=== PATIENT | female | born 1980 | race Caucasian/White ===

== ENCOUNTER → 2017-09-18 | Outpatient (CLI) | payer OTHER, SELFPAY ==
[2017-09-18 12:35] LABS: Absolute Lymphocyte Count 2.57 X10^3/ul (0.83-4.51); Absolute Neutrophil Count 6.8 X10^3/uL (2.0-7.7); Basophil# 0.05 X10^3/uL; Basophil% 0.5 % (0-1); Eosinophil# 0.21 X10^3/uL; Hematocrit 44.2 % (37-47); Hemoglobin 14.9 g/dl (12.0-15.0); Lymphocyte # 2.57 X10^3/ul (4.0); Mean Corp Hgb Conc 33.7 g/gl (32-36); Mean Corpuscular Hgb 32.7 pg (27.0-32.0); Mean Corpuscular Volume 96.9 fL (81-99); Monocyte# 1.05 X10^3/uL; Monocyte% 9.8 % (0-10); Neutrophil % 63.6 % (47-70); Platelet Count 433 K/mm3 (150-450); RBC Distribution Width CV 13.4 % (11.6-14.6); RBC Distribution Width SD 47.6 fl (35.1-43.9); Red Blood Count 4.56 M/mm3 (4.2-5.4); White Blood Count 10.7 K/mm3 (4.4-11.0)
[2017-09-18 12:37] LABS: POSITIVE COUNT NO; POSITIVE DIFFERENTIAL NO; POSITIVE MORPHOLOGY NO
[2017-09-18 13:01] LABS: Erythrocyte Sedimentation Rate 27 mm/hr (0-20)
[2017-09-18 13:07] LABS: ALB/GLOB Ratio 0.9 RATIO (0.9-2.4); AST(SGOT) 49 U/L (15-37); Alanine Aminotransfer ALT/SGPT 76 U/L (13-56); Albumin, Serum 3.6 g/dL (3.2-5.0); Alkaline Phosphatase 87 U/L (45-117); Anion Gap 11 (5-15); BUN 9 mg/dL (7-18); BUN/Creat Ratio 10.5 RATIO (10-20); Calcium,Total 8.6 mg/dL (8.5-10.1); Chloride 105 mmol/L (98-107); Creatinine, Serum 0.86 mg/dL (0.55-1.02); EST Glomerular Filtration Rate 79 mL/min (>60); Est Glom Filt Rate - Afr Amer 95 mL/min (>60); Globulin 4.1 g/dL (2.2-4.2); Glucose 80 mg/dL (74-106); Potassium 3.7 mmol/L (3.5-5.1); Protein, Total 7.7 g/dL (6.4-8.2); Sodium Level 137 mmol/L (136-145); T4 Free Direct 1.12 ng/dL (0.76-1.46); Thyroid Stim Hormone (TSH) 1.34 uIU/mL (0.358-3.74)
[2017-09-19 17:05] LABS: Thyroid Peroxidase AB 15 IU/mL (0-34)
[2017-09-23 03:06] LABS: Aspergillus fumigatus <0.10 kU/L (Class 0); Bahia Grass 0.12 kU/L (Class 0/I); Beef <0.10 kU/L (Class 0); Bermuda Grass 0.13 kU/L (Class 0/I); Cat Hair/Dander, Standard <0.10 kU/L (Class 0); Cedar, Mountain 0.12 kU/L (Class 0/I); Cladosporium herbarum <0.10 kU/L (Class 0); Cockroach, American 0.55 kU/L (Class I); Corn <0.10 kU/L (Class 0); D farinae Mite <0.10 kU/L (Class 0); D pteronyssinus <0.10 kU/L (Class 0); Dog Epithelia <0.10 kU/L (Class 0); Egg, Whole <0.10 kU/L (Class 0); Elm, American White 0.12 kU/L (Class 0/I); Hazelnut Tree <0.10 kU/L (Class 0); Hickory, White <0.10 kU/L (Class 0); Johnson Grass 0.13 kU/L (Class 0/I); Maple/Box Elder 0.11 kU/L (Class 0/I); Milk (Cow) <0.10 kU/L (Class 0); Mucor racemosus <0.10 kU/L (Class 0); Mugwort <0.10 kU/L (Class 0); Mulberry, White <0.10 kU/L (Class 0); Nettle 0.14 kU/L (Class 0/I); Oak, White 0.13 kU/L (Class 0/I); Peanut <0.10 kU/L (Class 0); Penicillium chrysogen <0.10 kU/L (Class 0); Pigweed, Rough 0.12 kU/L (Class 0/I); Plantain, English 0.13 kU/L (Class 0/I); Pork <0.10 kU/L (Class 0); Ragweed, Short/Common 0.28 kU/L (Class 0/I); Sheep Sorrel(Dock) 0.11 kU/L (Class 0/I); Soybean <0.10 kU/L (Class 0); Stemphylium herbarum 0.16 kU/L (Class 0/I); Sweet Gum <0.10 kU/L (Class 0); Sycamore, American <0.10 kU/L (Class 0); Wheat 0.11 kU/L (Class 0/I)
[2017-09-23 11:31] LABS: Chocolate <0.10 kU/L (Class 0)
== END | disposition home or self-care (01) ==
LOC: MFPLAB 16:44
PROVIDERS: Family Provider Family Medicine; PCP Family Medicine; Visit Provider Family Medicine
DX: L50.9 Urticaria, unspecified (principal); R60.9 Edema, unspecified; E04.9 Nontoxic goiter, unspecified
CPT/HCPCS: 36415; 80053; 84439; 84443; 84481; 85025; 85652; 86003; 86005; 86376

== ENCOUNTER → 2017-09-25 14:45 | Outpatient (CLI) | payer OTHER, SELFPAY ==
--- NOTE | 2017-09-25 15:05 | US_ITS ---
STUDY: THYROID ULTRASOUND REASON FOR EXAM: Female, 37 years old. Nodules TECHNIQUE: Ultrasound evaluation of the thyroid was performed with real-time and static ledesma-scale imaging. COMPARISON: August 26, 2007 FINDINGS: RIGHT LOBE: The right lobe of the thyroid gland measures 5.4 x 1.8 x 1.4 cm. There is a homogeneous echotexture. There are 3 solid and cystic nodules. These measure 5 x 5 x 3 mm, 4 x 3 x 2 mm and 6 x 6 x 5 mm. The lesion is solid/cystic with regular margins and khloe nodular doppler flow. LEFT LOBE: The left lobe of the thyroid gland measures 4.6 x 1.7 x 1.5 cm. There is a homogeneous echotexture. 3 total nodules. These measure 6 x 4 x 3 mm, 3 x 3 x 1 mm, and 4 x 4 by 3 mm. The lesion is cystic with regular margins and khloe nodular doppler flow. ISTHMUS: The isthmus measures 2 mm . US/Thyroid IMPRESSION: Stable left thyroid nodules. The right thyroid nodules have slightly enlarged. Electronically Signed: Bienvenido Cross MD at 21:09 EST , Service support ,
== END ==
PROVIDERS: Family Provider Family Medicine; PCP Family Medicine; Visit Provider Family Medicine
DX: E04.9 Nontoxic goiter, unspecified (principal)
CPT/HCPCS: 76536

== ENCOUNTER → 2017-10-22 09:24 | Outpatient (CLI) | payer OTHER, SELFPAY ==
--- NOTE | 2017-10-22 09:29 | RAD_ITS ---
STUDY: X-RAY CHEST REASON FOR EXAM: Female, 37 years old. Cough TECHNIQUE: Frontal and lateral views of the chest were obtained. COMPARISON: None. FINDINGS: The lungs are underaerated. There are minimal asymmetric opacities in the lower left lung. There is no demonstrated pleural abnormality. The cardiac silhouette is normal in size. The mediastinum and hilar regions are unremarkable. Normal visualized pulmonary arteries. Normal visualized aortic arch and descending thoracic aorta. The thoracic spine is unremarkable. The visualized ribs, clavicles, and shoulders are unremarkable. There is no demonstrated abnormality of the visualized upper abdomen. RAD/Chest PA and Lateral IMPRESSION: Early consolidation cannot be excluded on the left side. There is no evidence of pleural effusion. Electronically Signed: Awilda Mcneill MD at 12:00 EDT Tel Direct: [phone], Service support ,
== END ==
PROVIDERS: Family Provider Family Medicine; PCP Family Medicine; Visit Provider Family Medicine
DX: J20.9 Acute bronchitis, unspecified (principal)
CPT/HCPCS: 71046

== ENCOUNTER → 2018-08-06 14:07 | Outpatient (CLI) | payer OTHER, SELFPAY ==
[2018-08-12 08:16] LABS: HPV Reflexed? NOT INDICATED
== END ==
PROVIDERS: Visit Provider Obstetrics & Gynecology
DX: Z12.4 Encounter for screening for malignant neoplasm of cervix (principal)
CPT/HCPCS: 88175; G0145

== ENCOUNTER → 2020-02-10 | Outpatient (CLI) | payer OTHER, SELFPAY ==
[2016-10-24 19:43] VITALS: BMI 30.5
[2020-02-10 18:48] LABS: Thyroid Stim Hormone (TSH) 1.15 uIU/mL (0.358-3.74)
[2020-02-15 16:24] LABS: HPV Reflexed? NOT INDICATED
== END | disposition home or self-care (01) ==
PROVIDERS: Referring Provider Obstetrics & Gynecology; Visit Provider Obstetrics & Gynecology
DX: Z12.4 Encounter for screening for malignant neoplasm of cervix (principal); N92.6 Irregular menstruation, unspecified; N95.1 Menopausal and female climacteric states
CPT/HCPCS: 84443; 88175; G0145

== ENCOUNTER 2020-11-29 06:41 | Emergency (ER) | payer OTHER, SELFPAY ==
--- NOTE | 2020-11-29 06:45 | NURSING ---
NO OLD EKGS
[2020-11-29 06:46] VITALS: BP 173/119; PULSE 108; RESP 21; TEMP 36.3; O2SAT 98; BMI 32.9
--- NOTE | 2020-11-29 06:49 | EKG12_ITS ---
Test Reason : CP Blood Pressure : / mmHG Vent. Rate : 106 BPM Atrial Rate : 106 BPM P-R Int : 124 ms QRS Dur : 086 ms QT Int : 334 ms P-R-T Axes : 057 083 042 degrees QTc Int : 443 ms Sinus tachycardia Otherwise normal ECG Confirmed by HARJEET LUJAN, DEBI ([id number]), technical editor ANTONIO WILHELM ([id number]) on 11/30/2020 9:05:46 AM Referred By: BOB Confirmed By:DEBI COSBY MD
[2020-11-29] MEDS: Aspirin 81 MG TAB.CHEW 324 MG PO (06:54)
[2020-11-29 06:58] LABS: Absolute Lymphocyte Count 3.42 X10^3/uL (0.83-4.51); Basophil# 0.07 X10^3/uL; Basophil% 0.6 % (0-1); Eosinophil# 0.41 X10^3/uL; Eosinophils% 3.3 % (0-5); Hematocrit 47.6 % (37-47); Lymphocyte # 3.42 X10^3/ul (0.83-4.51); Lymphocyte % 27.4 % (19-41); Mean Corp Hgb Conc 33.6 g/dL (32-36); Mean Corpuscular Hgb 33.1 pg (27.0-32.0); Mean Corpuscular Volume 98.3 fL (81-99); Mean Platelet Vol. 9.5 fl (6.2-12.0); Monocyte# 1.56 X10^3/uL; Monocyte% 12.5 % (0-10); NRBC Flagged by Analyzer 0 % (0-5); Neutrophil # 6.95 X10^3/uL (2.7-7.7); Neutrophil % 55.8 % (47-70); POSITIVE DIFFERENTIAL YES; Platelet Count 404 K/mm3 (150-450); RBC Distribution Width CV 12.6 % (11.6-14.6); RBC Distribution Width SD 45.5 fl (35.1-43.9); Red Blood Count 4.84 M/mm3 (4.2-5.4); White Blood Count 12.5 K/mm3 (4.4-11.0)
--- NOTE | 2020-11-29 07:00 | RAD_ITS ---
STUDY: X-RAY CHEST REASON FOR EXAM: Female, 40 years old. chest pain TECHNIQUE: Single AP portable view of the chest. COMPARISON: None. FINDINGS: The lungs are clear and expanded. There is no demonstrated pleural abnormality. Normal size heart. Normal mediastinum and lew. Normal visualized pulmonary arteries. Normal visualized aortic arch and descending thoracic aorta. Normal visualized thoracic spine. Normal visualized ribs, clavicles, and shoulders. There is no demonstrated abnormality of the visualized soft tissue structures of the upper abdomen. RAD/Chest 1 View (Portable) IMPRESSION: Normal x-ray examination of the chest. Electronically Signed: Puneet Johnson MD at 7:30 EDT Tel , Service support ,
[2020-11-29 07:01] LABS: Differential Indicated SCAN CRITERIA MET
--- NOTE | 2020-11-29 07:06 | EDS_ITS ---
HPI History of Present Illness Chief Complaint: Chest Pain Informant: patient Onset/Context/Timing Onset: Yesterday Activity at onset: gradual Timing: Intermittent Location: Substernal Worsened By: Nothing Relieved By: Nothing Associated Symptoms: Positive for Cough; Negative for Nausea, Vomiting, Diaphoresis, Dyspnea, Fever, Lightheadedness, Acid Reflux and Palpitations Narrative Narrative: Patient presents with chest pain that began yesterday evening. Patient states it went away when she went to bed last night. Patient states that when she got up and went to work today her pain returned. Patient states it has been waxing and waning. Patient describes the pain as sharp and tightness. Patient states the pain is over the substernal area. Patient states nothing makes it better or worse. Patient states she did have an occasional cough but denies any sputum production. Patient denies any shortness of breath. Patient denies any diaphoresis. Patient states the pain radiates into her back between her shoulder blades and up into her neck. Patient is a smoker but denies any other cardiac or PE risk factors. CVD Risk Factors: Positive for Smoking; Negative for Hypertension, Diabetes, Hypercholesterolemia and Family History 1' </=55 PE Risk Factors: Negative for Recent Travel/Surgery, Recent Immobilization, Prior DVT or PE, Cancer and OCP + Smoking + >/=35 PFSH PFSH Medical History Appendicitis Home Medications NK 11/29/20 [History Last Taken Unknown] Allergy/AdvReac Type Severity Reaction Status Date / Time No Known Allergies Allergy Verified 11/29/20 06:42 Surgical History S/P appendectomy Social History Smoking Status: Current every day smoker ROS ROS ED Constitutional Constitutional ED: Denies chills or fever(s) Eyes Eyes: Denies blurry vision or change in vision ENT ENT ED: Denies rhinorrhea or sore throat Cardiovascular Cardiovascular: Reports chest pain; Denies palpitations Respiratory/Chest Respiratory/Chest: Reports cough; Denies dyspnea Gastrointestinal Gastrointestinal: Denies nausea or vomiting Genitourinary Genitourinary ED: Denies dysuria or hematuria Musculoskeletal Musculoskeletal: Reports back pain and neck pain Integumentary Denies abscess or rash Neurologic Neurologic: Denies headache(s), paresthesias or weakness Allergic/Immunologic Allergic/Immunologic ED: Reports urticaria; Denies mouth swelling EXAM Physical Exam Const Vital Signs: 11/29/20 06:46 11/29/20 06:48 11/29/20 06:52 Temperature 97.4 F L Temperature Source Temporal Pulse Rate 108 H Respiratory Rate 21 H Respiratory Effort Normal Respiratory Pattern Normal Blood Pressure 173/119 H Blood Pressure Mean 137 Pulse Ox 98 Oxygen Delivery Method Room Air Room Air 11/29/20 07:22 11/29/20 07:31 Temperature Temperature Source Pulse Rate 99 94 Respiratory Rate Respiratory Effort Respiratory Pattern Blood Pressure 175/119 H 155/104 H Blood Pressure Mean Pulse Ox Oxygen Delivery Method Positive well nourished and well developed General Appearance ED: well developed HEENT Reports moist mucous membranes normocephalic Neck supple and no JVD Chest Wall Chest: tenderness sternum (Left parasternal area) Resp normal respiratory effort Effort and Inspection: respiratory distress Cardio regular rhythm Rate: tachycardic GI normal to inspection, nondistended, normoactive bowel sounds, soft to palpation and non-tender Extremity General Extremety ED: Negative for edema or tenderness General Extremity: Negative for edema Neuro oriented x3, CN's II-XII intact bilaterally and no sensory deficits noted Sensorium / Orientation: awake and alert Motor Exam: strength 5/5 throughout Heart Score History: Moderately Suspicious ECG: Normal Age: </= 45 years Risk Factors: 1 or 2 Risk Factors Troponin: </= Normal Limit Score: 2 MDM MDM MDM Narrative Medical decision making narrative: Patient was given aspirin and sublingual nitroglycerin here. Patient had no improvement of her pain with the nitroglycerin. CBC shows a slight leukocytosis of 12.5. Basic metabolic profile was within normal limits. Troponin was normal. D-dimer was slightly elevated at 0.63. Portable 1 view chest x-ray was obtained. On my interpretation, lung yusuf are clear. There is normal cardiac silhouette. Bony thorax is normal. There is no acute process noted. Radiologist also interpreted the x-ray and agrees. CTA of the chest was obtained because of the elevated D-dimer. There is no evidence of pulmonary embolism or aortic dissection. Patient has a HEART score of 2. Patient was advised that this is low risk for acute cardiac event. Patient was instructed to follow-up with her primary care physician in 5 to 7 days for further evaluation. Patient understood and was agreeable with the plan. All questions were answered. Lab Data Attestation: I reviewed the patient's lab results. Labs: Laboratory Results - last 24 hr 11/29/20 11/29/20 11/29/20 06:45 06:45 06:45 WBC 12.5 H RBC 4.84 Hgb 16.0 H Hct 47.6 H MCV 98.3 MCH 33.1 H MCHC 33.6 RDW Std Deviation 45.5 H RDW Coeff of Nery 12.6 Plt Count 404 MPV 9.5 Immature Gran % (Auto) 0.400 Neut % (Auto) 55.8 Lymph % (Auto) 27.4 [place] % (Auto) 12.5 H Eos % (Auto) 3.3 Baso % (Auto) 0.6 Absolute Neuts (auto) 7.0 Absolute Lymphs (auto) 3.42 Nucleated RBC % 0 Diff Path Review May foll D-Dimer Quant (PE/DVT) 0.63 H* Sodium 137 Potassium 4.0 Chloride 109 H Carbon Dioxide 22.0 Anion Gap 6 BUN 14 Creatinine 0.77 Estim Creat Clear Calc 71.82 Est GFR (MDRD) Af Amer 106 Est GFR (MDRD) Non-Af 88 BUN/Creatinine Ratio 18.2 Glucose 97 Calcium 9.2 Troponin I < 0.015 Radiography Chest X-Ray - ED: 1 View, Read by ED Physician, Read by Radiologist and Normal Diagnostic Testing: Radiology Impression Chest X-Ray 11/29/20 07:00 IMPRESSION: Normal x-ray examination of the chest. Electronically Signed: Puneet Johnson MD at 7:30 EDT Tel , Service support , Chest CTA 11/29/20 07:45 IMPRESSION: Normal CTA chest examination, without a demonstrated pulmonary embolism or arterial dissection. Electronically Signed: Nikolas Macias MD at 8:21 EDT , Service support , EKG Initial EKG: Attestation: I personally reviewed and interpreted this EKG as follows: Interpretation: No Acute Injury Pattern and Sinus Tachycardia (106) Prior EKG tracings: not available for review Discharge Plan Triage Chief Complaint: Chest Pain ED Provider: Lex Wang Dx/Rx/DC Orders Clinical Impression: Chest pain of uncertain etiology Instructions: ED Chest Pain, Uncertain Cause Prescriptions: No Action NK RF: 0 Primary Care Provider: Hayden Omalley Referrals: Hayden Omalley MD [Primary Care Provider] - 5-7 Days Disposition Disposition: Home, self care
[2020-11-29 07:22] VITALS: BP 175/119; PULSE 99
[2020-11-29 07:22] LABS: Anion Gap 6 (5-15); BUN 14 mg/dL (7-18); BUN/Creat Ratio 18.2 RATIO (10-20); Calcium,Total 9.2 mg/dL (8.5-10.1); Chloride 109 mmol/L (98-107); Creatinine, Serum 0.77 mg/dL (0.55-1.02); EST Glomerular Filtration Rate 88 mL/min (>60); Est Glom Filt Rate - Afr Amer 106 mL/min (>60); Estimated Creatinine Clearance 71.82 ml/min; Glucose 97 mg/dL (74-106); Sodium Level 137 mmol/L (136-145)
[2020-11-29] MEDS: Nitroglycerin SL (ED/IMG/CATH) 0.4 MG TABLET SL ×2 (07:22→07:31)
[2020-11-29 07:31] VITALS: BP 155/104; PULSE 94
[2020-11-29 07:45] LABS: D-Dimer Quantitative (DVT/PE) 0.63 FEU/ug/m (0.27-0.49)
--- NOTE | 2020-11-29 07:45 | CT_ITS ---
STUDY: CTA CHEST REASON FOR EXAM: Female, 40 years old. Elevated D-dimer. Right-sided chest pain. Elevated white cell count. RADIATION DOSAGE (If Supplied By Facility): CTDIvol = ( 10.99 ) mGy, DLP = ( 464.40 ) mGycm TECHNIQUE: The examination was performed with the intravenous administration of IV 100mL Isovue-370. Post-processing of the angiographic images was performed, with multiplanar reformation and 3D reconstruction. Individualized dose optimization techniques were used for this CT. COMPARISON: None. FINDINGS: Small benign-appearing bilateral axillary lymph nodes. Normal enhancement of the main pulmonary artery and right and left pulmonary arteries. Normal enhancement of the bilateral peripheral pulmonary arteries. There is no demonstrated pulmonary embolism. Normal thoracic aorta and visualized great vessels. There is no demonstrated aortic dissection. Normal heart and pericardium. Normal mediastinum. Normal hilar regions. Normal visualized trachea and bronchi. The lungs are well expanded. Normal pulmonary parenchyma. Normal pleura. Normal chest wall structures. Normal osseous structures. Normal visualized upper abdomen. CT/CTA Chest W/WO Contrast IMPRESSION: Normal CTA chest examination, without a demonstrated pulmonary embolism or arterial dissection. Electronically Signed: Nikolas Macias MD at 8:21 EDT , Service support ,
[2020-11-29 08:38] VITALS: BP 154/103; PULSE 95; RESP 16; O2SAT 99
[2020-11-29 13:13] LABS: Pathologist Review Reviewed
== END 2020-11-29 08:39 | disposition home or self-care (01) ==
PROVIDERS: Emergency Medicine; Emergency Provider Emergency Medicine; PCP Family Medicine
DX: R07.9 Chest pain, unspecified (principal); R05 Cough; R79.89 Other specified abnormal findings of blood chemistry; F17.200 Nicotine dependence, unspecified, uncomplicated
CPT/HCPCS: 71045; 71275; 80048; 84484; 85025; 85379; 93005; 99285; Q9967; A4216

== ENCOUNTER → 2020-12-14 15:21 | Outpatient (CLI) | payer OTHER, SELFPAY ==
[2020-11-29 06:46] VITALS: BMI 32.9
[2020-12-14 17:39] LABS: Absolute Neutrophil Count 8.8 X10^3/uL (2.0-7.7); Basophil% 0.7 % (0-1); Eosinophil# 0.28 X10^3/uL; Eosinophils% 2.1 % (0-5); Hematocrit 48.2 % (37-47); Hemoglobin 15.9 g/dL (12.0-15.0); Lymphocyte % 18.6 % (19-41); Mean Corpuscular Hgb 32.8 pg (27.0-32.0); Mean Corpuscular Volume 99.4 fL (81-99); Mean Platelet Vol. 10.6 fl (6.2-12.0); Monocyte# 1.75 X10^3/uL; NRBC Flagged by Analyzer 0 % (0-5); Neutrophil # 8.76 X10^3/uL (2.7-7.7); Neutrophil % 65.3 % (47-70); POSITIVE DIFFERENTIAL YES; Platelet Count 403 K/mm3 (150-450); RBC Distribution Width CV 12.5 % (11.6-14.6); RBC Distribution Width SD 46.3 fl (35.1-43.9); Red Blood Count 4.85 M/mm3 (4.2-5.4); White Blood Count 13.4 K/mm3 (4.4-11.0)
[2020-12-14 17:41] LABS: Differential Indicated SCAN CRITERIA MET
[2020-12-14 17:59] LABS: Differential Comment SCANNED; Erythrocyte Sedimentation Rate 28 mm/hr (0-30)
[2020-12-14 18:37] LABS: ALB/GLOB Ratio 1.1 RATIO (0.9-2.4); AST(SGOT) 29 U/L (15-37); Alanine Aminotransfer ALT/SGPT 54 U/L (13-56); Albumin, Serum 4.1 g/dL (3.2-5.0); Alkaline Phosphatase 66 U/L (45-117); Anion Gap 10 (5-15); BUN 14 mg/dL (7-18); BUN/Creat Ratio 14.9 RATIO (10-20); Calcium,Total 9.2 mg/dL (8.5-10.1); Chloride 107 mmol/L (98-107); Creatinine, Serum 0.94 mg/dL (0.55-1.02); EST Glomerular Filtration Rate 70 mL/min (>60); Est Glom Filt Rate - Afr Amer 84 mL/min (>60); Globulin 3.9 g/dL (2.2-4.2); Glucose 86 mg/dL (74-106); Potassium 3.5 mmol/L (3.5-5.1); Rheumatoid Factor < 10.0 IU/mL (<15); Sodium Level 138 mmol/L (136-145)
[2020-12-15 09:53] LABS: Hepatitis B Surface Antibody Non-Reactive; Hepatitis B Surface Antigen Non-Reactive (Nonreactive); Hepatitis C Antibody Non-Reactive (Nonreactive)
[2020-12-15 12:31] LABS: Pathologist Review Reviewed
[2020-12-17 03:07] LABS: Thyroid Peroxidase AB < 9 IU/mL (0-34)
[2020-12-17 09:15] LABS: Hepatitis B Core Ab Total Negative (Negative)
[2020-12-18 08:42] LABS: Anti-Nuclear Antibody Test Negative (.)
== END ==
LOC: MTLAB 15:23
PROVIDERS: PCP Family Medicine; Referring Provider Dermatology; Visit Provider Dermatology
DX: L50.8 Other urticaria (principal); R60.0 Localized edema
CPT/HCPCS: 36415; 80053; 83520; 85025; 85652; 86038; 86376; 86431; 86704; 86706; 86803; 87340

== ENCOUNTER → 2021-12-29 | Outpatient (CLI) | payer OTHER, SELFPAY ==
[2021-12-29 10:58] LABS: BUN 13 mg/dL (7-18); BUN/Creat Ratio 13.6 RATIO (10-20); Calcium,Total 9.3 mg/dL (8.5-10.1); Cholesterol 227 mg/dL (200); Creatinine, Serum 0.96 mg/dL (0.55-1.02); EST Glomerular Filtration Rate 67 mL/min (>60); Est Glom Filt Rate - Afr Amer 82 mL/min (>60); Glucose 107 mg/dL (74-106); Triglycerides 145 mg/dL
[2021-12-29 10:59] LABS: Anion Gap 6 (5-15); Chloride 108 mmol/L (98-107); High Density Lipoprotein 43 mg/dL; Potassium 3.6 mmol/L (3.5-5.1); Sodium Level 138 mmol/L (136-145); Very Low Density Lipoprotein 29 mg/dL (5-40)
== END | disposition home or self-care (01) ==
PROVIDERS: PCP Family Medicine; Referring Provider Family Medicine; Visit Provider Family Medicine
DX: I10 Essential (primary) hypertension (principal); Z13.220 Encounter for screening for lipoid disorders
CPT/HCPCS: 36415; 80048; 80061; 84443

== ENCOUNTER → 2022-02-08 | Outpatient (CLI) | payer OTHER, SELFPAY ==
[2022-02-08 18:40] LABS: Anion Gap 4 (5-15); BUN 12 mg/dL (7-18); BUN/Creat Ratio 14.2 RATIO (10-20); Chloride 109 mmol/L (98-107); Creatinine, Serum 0.85 mg/dL (0.55-1.02); EST Glomerular Filtration Rate 78 mL/min (>60); Est Glom Filt Rate - Afr Amer 94 mL/min (>60); Glucose 136 mg/dL (74-106); Potassium 3.6 mmol/L (3.5-5.1); Sodium Level 136 mmol/L (136-145)
== END | disposition home or self-care (01) ==
LOC: MFPLAB 16:13
PROVIDERS: PCP Family Medicine; Referring Provider Family Medicine; Visit Provider Nurse Practitioner Family
DX: I10 Essential (primary) hypertension (principal)
CPT/HCPCS: 36415; 80048

== ENCOUNTER → 2022-11-19 | Outpatient (CLI) | payer OTHER, SELFPAY ==
[2022-11-19 12:58] LABS: ALB/GLOB Ratio 0.9 RATIO (0.9-2.4); AST(SGOT) 63 U/L (15-37); Alanine Aminotransfer ALT/SGPT 98 U/L (13-56); Albumin, Serum 3.7 g/dL (3.2-5.0); Alkaline Phosphatase 76 U/L (45-117); Anion Gap 5 (5-15); BUN 12 mg/dL (7-18); BUN/Creat Ratio 15.9 RATIO (10-20); Calcium,Total 9.1 mg/dL (8.5-10.1); Chloride 106 mmol/L (98-107); Creatinine, Serum 0.75 mg/dL (0.55-1.02); EST Glomerular Filtration Rate 89 mL/min (>60); Est Glom Filt Rate - Afr Amer 107 mL/min (>60); Globulin 3.9 g/dL (2.2-4.2); Glucose 107 mg/dL (74-106); Potassium 3.1 mmol/L (3.5-5.1); Protein, Total 7.6 g/dL (6.4-8.2); Sodium Level 134 mmol/L (136-145)
== END | disposition home or self-care (01) ==
LOC: MFPLAB 11:13
PROVIDERS: PCP Family Medicine; Visit Provider Nurse Practitioner Family
DX: I10 Essential (primary) hypertension (principal)
CPT/HCPCS: 36415; 80053

== ENCOUNTER → 2022-11-30 | Outpatient (CLI) | payer OTHER, SELFPAY ==
[2022-11-30 16:40] LABS: ALB/GLOB Ratio 0.9 RATIO (0.9-2.4); AST(SGOT) 72 U/L (15-37); Alanine Aminotransfer ALT/SGPT 124 U/L (13-56); Albumin, Serum 3.5 g/dL (3.2-5.0); Alkaline Phosphatase 71 U/L (45-117); Anion Gap 7 (5-15); BUN 12 mg/dL (7-18); BUN/Creat Ratio 14.3 RATIO (10-20); Calcium,Total 8.7 mg/dL (8.5-10.1); Chloride 112 mmol/L (98-107); Creatinine, Serum 0.84 mg/dL (0.55-1.02); EST Glomerular Filtration Rate 78 mL/min (>60); Est Glom Filt Rate - Afr Amer 95 mL/min (>60); Globulin 3.7 g/dL (2.2-4.2); Glucose 122 mg/dL (74-106); Potassium 3.3 mmol/L (3.5-5.1); Protein, Total 7.2 g/dL (6.4-8.2); Sodium Level 141 mmol/L (136-145)
== END | disposition home or self-care (01) ==
PROVIDERS: PCP Family Medicine; Visit Provider Nurse Practitioner Family
DX: R74.8 Abnormal levels of other serum enzymes (principal)
CPT/HCPCS: 36415; 80053

== ENCOUNTER → 2022-12-20 | Outpatient (CLI) | payer OTHER, SELFPAY ==
--- NOTE | 2022-12-20 07:56 | US_ITS ---
INDICATION: ABNORMAL LEVELS OF SERUM EXAMINATION: Ultrasound US Abdomen Complete TECHNIQUE: Andrews-scale and color Doppler imaging was performed of the abdomen. COMPARISON: None. FINDINGS: LIVER: 19.3 cm hyperechoic liver with blunted internal architecture. No focal hepatic lesion. No intrahepatic biliary ductal dilatation. There is no free fluid. GALLBLADDER AND BILIARY TREE: No shadowing gallstone, pericholecystic fluid or gallbladder wall thickening is demonstrated. The proximal common bile duct measures 5 mm, which is within normal limits for the patient''s age. SONOGRAPHIC WHITE''S SIGN: Negative. PANCREAS: No focal abnormality is demonstrated in the pancreas. No pancreatic ductal dilatation. SPLEEN: The spleen is normal in size and homogeneous in echotexture. KIDNEYS: There is no hydronephrosis. No shadowing calculus, focal lesion, or perinephric collection is demonstrated. VESSELS: Submitted longitudinal images of the intra-abdominal aorta demonstrate no gross abnormalities and are unremarkable. The IVC is patent. US/Abdomen Complete IMPRESSION: Hepatomegaly with hyperechoic parenchyma, compatible with hepatocellular disease such as steatosis. Electronically Signed: Cedric Vo MD at 21:59 EDT ,
== END | disposition home or self-care (01) ==
LOC: US 07:56
PROVIDERS: PCP Family Medicine; Referring Provider Nurse Practitioner Family; Visit Provider Nurse Practitioner Family
DX: R74.8 Abnormal levels of other serum enzymes (principal)
CPT/HCPCS: 76700

== ENCOUNTER → 2023-01-25 | Outpatient (CLI) | payer OTHER, SELFPAY ==
[2023-01-25 11:06] LABS: ALB/GLOB Ratio 0.9 RATIO (0.9-2.4); AST(SGOT) 92 U/L (15-37); Alanine Aminotransfer ALT/SGPT 160 U/L (13-56); Albumin, Serum 3.7 g/dL (3.2-5.0); Alkaline Phosphatase 71 U/L (45-117); Anion Gap 6 (5-15); BUN 8 mg/dL (7-18); BUN/Creat Ratio 9.7 RATIO (10-20); Calcium,Total 8.8 mg/dL (8.5-10.1); Chloride 109 mmol/L (98-107); Cholesterol 181 mg/dL (200); Creatinine, Serum 0.82 mg/dL (0.55-1.02); EST Glomerular Filtration Rate 80 mL/min (>60); Est Glom Filt Rate - Afr Amer 97 mL/min (>60); Ferritin 277 ng/mL (8-252); GGTP 88 U/L (5-55); Globulin 3.9 g/dL (2.2-4.2); Glucose 112 mg/dL (74-106); High Density Lipoprotein 46 mg/dL; Iron 73 ug/dL (50-170); Potassium 3.8 mmol/L (3.5-5.1); Protein, Total 7.6 g/dL (6.4-8.2); Sodium Level 139 mmol/L (136-145); Triglycerides 71 mg/dL; Very Low Density Lipoprotein 14 mg/dL (5-40)
[2023-01-25 11:08] LABS: Vitamin D,25 Hydroxy 24.1 ng/mL
[2023-01-25 11:17] LABS: Hematocrit 48.7 % (37-47); Mean Corp Hgb Conc 32.9 g/dL (32-36); Mean Corpuscular Hgb 33.7 pg (27.0-32.0); Mean Corpuscular Volume 102.5 fL (81-99); Mean Platelet Vol. 10.6 fl (6.2-12.0); Platelet Count 415 K/mm3 (150-450); RBC Distribution Width SD 49.7 fl (35.1-43.9); Red Blood Count 4.75 M/mm3 (4.2-5.4); White Blood Count 11.9 K/mm3 (4.4-11.0)
[2023-01-25 15:34] LABS: Anion Gap 8 (5-15); BUN 8 mg/dL (7-18); BUN/Creat Ratio 9.9 RATIO (10-20); Calcium,Total 8.9 mg/dL (8.5-10.1); Chloride 109 mmol/L (98-107); EST Glomerular Filtration Rate 82 mL/min (>60); Est Glom Filt Rate - Afr Amer 99 mL/min (>60); Glucose 104 mg/dL (74-106); Potassium 4.1 mmol/L (3.5-5.1); Sodium Level 142 mmol/L (136-145)
[2023-01-26 06:08] LABS: Ceruloplasmin 26.8 mg/dL (19.0-39.0)
[2023-01-28 16:09] LABS: ANTINUCLEAR ANTIBODIES DIRECT Negative (Negative)
== END | disposition home or self-care (01) ==
LOC: MFPLAB 08:15
PROVIDERS: Nurse Practitioner Family; PCP Family Medicine; Visit Provider Family Medicine
DX: R74.8 Abnormal levels of other serum enzymes (principal); E87.6 Hypokalemia; I10 Essential (primary) hypertension
CPT/HCPCS: 36415; 80048; 80053; 80061; 82306; 82390; 82728; 82977; 83540; 85027; 86038

== ENCOUNTER → 2023-03-02 | Outpatient (CLI) | payer OTHER, SELFPAY ==
--- NOTE | 2023-03-02 09:02 | US_ITS ---
STUDY: THYROID ULTRASOUND REASON FOR EXAM: Female, 42 years old. GOITER TECHNIQUE: Ultrasound evaluation of the thyroid was performed with real-time and static ledesma-scale imaging. COMPARISON: 09/17/2017 FINDINGS: RIGHT LOBE: The right lobe of the thyroid gland measures 5.1 x 1.7 x 1.7 cm. There is a heterogeneous echotexture. Some smaller (less than 5 mm) hypoechoic nodules consistent with tiny adenomas. LEFT LOBE: The left lobe of the thyroid gland measures 5.0 x 1.7 x 1.6 cm. There is a heterogeneous echotexture. Nodule 1:7 x 5 x 5 mm cystic anechoic wider than tall smoothly marginated nodule with no echogenic foci (TR 1) in the lateral left lobe consistent with a colloid cyst. ISTHMUS: The isthmus measures 2 mm thick. . The regional lymph nodes are normal. US/Thyroid IMPRESSION: Thyroiditis with a 7 mm colloid cyst in the left lobe. Electronically Signed: Praveen Smith MD at 22:56 EDT ,
--- NOTE | 2023-03-02 09:02 | US_ITS ---
STUDY: ABDOMINAL ULTRASOUND - ELASTOGRAPHY REASON FOR VISIT: Female, 42 years old. Elevated LFTs. TECHNIQUE: Liver stiffness measurements were obtained on a Stratasan RS 85 ultrasound machine using a CA 1-7 probe following the SRU guidelines. 3 measurements were obtained using a 2-D-SWE method. TheIQR/M was 19 % suggesting a quality data set. TECHNICAL QUALITY: Adequate. COMPARISON: None. FINDINGS: Liver: There is no demonstrated mass lesion. Median liver stiffness measured 7.5 kPa. Abdomen: There is no demonstrated mass lesion. US/Elastography Parenchyma/Organ IMPRESSION: Liver stiffness measures 7.5 kPa compatible with F2-F3 (Mild to moderate liver fibrosis) Metavir score. Electronically Signed: Nikolas Macias MD at 14:46 EDT ,
== END | disposition home or self-care (01) ==
PROVIDERS: PCP Family Medicine; Referring Provider Family Medicine; Visit Provider Family Medicine
DX: E04.9 Nontoxic goiter, unspecified (principal); R79.89 Other specified abnormal findings of blood chemistry
CPT/HCPCS: 76536; 76981

== ENCOUNTER → 2023-03-12 | Outpatient (CLI) | payer OTHER, SELFPAY ==
[2023-03-12 18:18] LABS: Free T3 2.9 pg/mL (2.18-3.98); T4 Free Direct 0.98 ng/dL (0.76-1.46); Thyroid Stim Hormone (TSH) 2.08 uIU/mL (0.358-3.74)
[2023-03-14 14:09] LABS: Erythropoietin 9.4 mIU/mL (2.6-18.5)
== END | disposition home or self-care (01) ==
LOC: MFPLAB 15:42
PROVIDERS: PCP Family Medicine; Visit Provider Family Medicine
DX: E04.9 Nontoxic goiter, unspecified (principal); R71.8 Other abnormality of red blood cells
CPT/HCPCS: 36415; 82668; 84439; 84443; 84481

== ENCOUNTER → 2023-04-16 | Outpatient (CLI) | payer OTHER, SELFPAY ==
--- NOTE | 2023-04-16 07:43 | CT_ITS ---
EXAM: CT ABDOMEN AND PELVIS WITH INTRAVENOUS CONTRAST CLINICAL INDICATION: abdominal swelling TECHNIQUE: Helically acquired images were obtained of the abdomen and pelvis with intravenous contrast. This CT exam was performed using one or more of the following dose reduction techniques: automated exposure control, adjustment of the mA and/or kV according to patient size, and/or use of iterative reconstruction technique. CONTRAST: Oral and amp; IV Readi-CAT and amp; 100mL Isovue-300 COMPARISON: CT Abdomen Pelvis dated 10/24/2016 FINDINGS: LOWER THORAX: Normal. Lung bases are clear. No cardiomegaly. No pericardial effusion. ABDOMEN: LIVER: Liver is enlarged and steatotic. PANCREAS: Normal. No focal cystic or solid mass. SPLEEN: Normal. Normal size without focal cystic or solid mass. ADRENALS: Normal. No nodules. KIDNEYS AND URETERS: Normal. Normal renal size and position. No hydronephrosis. STOMACH AND BOWEL: Normal. No bowel distention. No focal inflammatory change. PELVIS: APPENDIX: Surgical clips at the base of the cecum consistent with appendectomy. BLADDER: Urinary bladder is contracted. REPRODUCTIVE: Unremarkable as visualized. No mass. ABDOMEN and PELVIS: INTRAPERITONEAL SPACE: Normal. No ascites or other fluid collection. No free air. BONES/JOINTS: No suspicious lytic or blastic abnormality. SOFT TISSUES: Normal. No discrete abdominal or pelvic wall hernia. VASCULATURE: Normal. Abdominal aorta is non-dilated. LYMPH NODES: Normal. No enlarged lymph nodes. CT/Abdomen/Pelvis WITH Contrast IMPRESSION: Enlarged steatotic liver. No evidence of ascites or abdominal mass. Electronically Signed: Mk Grande MD at 12:09 EDT ,
[2023-04-16 08:08] LABS: CREATININE FINGERSTICK 1.2 mg/dL (0.55-1.02)
== END | disposition home or self-care (01) ==
LOC: CT 07:32
PROVIDERS: PCP Family Medicine; Referring Provider Family Medicine; Visit Provider Family Medicine
DX: R19.00 Intra-abdominal and pelvic swelling, mass and lump, unspecified site (principal)
CPT/HCPCS: 74177; Q9967

== ENCOUNTER 2024-01-24 16:53 | Inpatient (IN) | payer OTHER, SELFPAY ==
[2024-01-24] VITALS (8 sets, daily range): BP systolic 137–173; BP diastolic 84–116; PULSE 91–122; RESP 16–27; TEMP 36.4–36.9; O2SAT 92–99; BMI 35.2; BMI 35.4
--- NOTE | 2024-01-24 17:14 | CT_ITS ---
STUDY: CT BRAIN WITHOUT CONTRAST REASON FOR EXAM: Female, 43 years old. Pain RADIATION DOSAGE (If Supplied By Facility): CTDIvol = ( 44.99 ) mGy, DLP = ( 745.49 ) mGycm TECHNIQUE: Transaxial CT imaging of the brain was performed without administration of intravenous contrast material. Individualized dose optimization techniques were used for this CT. COMPARISON: No relevant priors. FINDINGS: Normal soft tissue structures. Normal calvarium. Normal size ventricles and extra-axial spaces for the patient''s age. Normal white matter tracts of the cerebral hemispheres. There are bilateral thalamic infarcts possibly subacute.. Normal brainstem. Normal cerebellum. There is no intracranial hemorrhage. There are no findings of an acute ischemic infarction. Normal visualized paranasal sinuses. 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 MRI/MRA recommended for more definitive evaluation CT/Brain/Head without Contrast IMPRESSION: Bilateral thalamic infarcts possibly subacute and apparent basilar tip aneurysm MRI and MRA recommended for further evaluation N.B. : The above Results were Read Back by Sami Zhong MD to Everett Forde MD, and understanding confirmed on 01/24/2024 18:18:39 (ET). Electronically Signed: Sami Zhong MD at 18:14 EDT ,
[2024-01-24] MEDS: Ketorolac 15 MG/ML Vial IV (17:31)
[2024-01-24] MEDS: Metoclopramide 10 MG/2 ML Vial IV (17:31)
[2024-01-24] MEDS: DiphenhydrAMINE 50 MG/ML Syringe 25 MG IV (17:33)
--- NOTE | 2024-01-24 18:18 | CT_ITS ---
STUDY: CTA HEAD AND NECK WITH CONTRAST REASON FOR EXAM: Female, 43 years old. Bilateral thalamic strokes and basilar artery aneu RADIATION DOSAGE (If Supplied By Facility): CTDIvol = ( 20.06 ) mGy, DLP = ( 666.22 ) mGycm TECHNIQUE: CT angiography was performed with a multi-detector CT scanner. Data acquisition was obtained from the skull base through the vertex following intravenous administration of IV 100mL Isovue-370. MIP images were reconstructed from the axial data set. Post-processing of the angiographic images was performed, with multiplanar reformation and 3D reconstruction. Individualized dose optimization techniques were used for this CT. COMPARISON: No relevant priors. FINDINGS: Normal bilateral petrous carotid arteries. Normal right cavernous carotid artery with a normal supraclinoid bifurcation. Normal left cavernous carotid artery with a normal supraclinoid bifurcation. Normal right A1 segments of the anterior cerebral artery. Normal left A1 segments of the anterior cerebral artery. Anterior communicating artery not visualized consistent with normal variant Normal bilateral A2 segments of the anterior cerebral arteries. Normal right M1 and M2 segments of the middle cerebral arteries, with a normal M1 bifurcation. Normal left M1 and M2 segments of the middle cerebral arteries, with a normal M1 bifurcation. Posterior communicating arteries are not visualized consistent with normal variant. Normal bilateral vertebral arteries. There is a fusiform aneurysm of the basilar artery measuring approximately 4.9 x 5.1 mm and approximately 11 mm in length. The visualized bilateral superior cerebellar (SCA) arteries are normal. Normal bilateral P1, P2 and visualized P3 segments of the posterior cerebral arteries. There is no demonstrated aneurysm of the [place]. There is no demonstrated abnormality of the visualized brain. AORTIC ARCH: Normal visualized aortic arch. Normal origins of the brachiocephalic, left common carotid, and left subclavian arteries. RIGHT CAROTID ARTERIES: Normal right common carotid artery (CCA). Normal right common carotid bulb. Normal origin of the right internal carotid (ICA) artery without a hemodynamically significant stenosis. Normal visualized cervical portion of the right internal carotid artery. Normal origin of the right external carotid artery (ECA). LEFT CAROTID ARTERIES: Normal left common carotid artery (CCA). Normal left common carotid bulb. Normal origin of the left internal carotid (ICA) artery without a hemodynamically significant stenosis. Normal visualized cervical portion of the left internal carotid artery. Normal origin of the left external carotid artery (ECA). VERTEBRAL ARTERIES: Normal bilateral vertebral arteries. CT/CTA Head AND Neck W/ Contrast IMPRESSION: Normal CTA of the neck. 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 Electronically Signed: Sami Zhong MD at 19:31 EDT ,
--- NOTE | 2024-01-24 18:34 | EX.ED.VIS.HA ---
HPI History of Present Illness Chief Complaint: Headache Detail of Chief Complaint: Severe headache that has been persistent since onset January 11. Informant: patient Onset/Context/Timing Onset: Weeks Context: Sudden (Initially unilateral now bilateral) Timing: Continuous Quality -Headache: Positive for Tightness; Negative for Similar Prior Headaches, Sharp, Dull or Throbbing Location: Bilateral greater frontal than posterior. Complains of neck pain and neck Current Severity: Severe Maximum Severity: Severe Worsened by: Nothing Relieved by: Nothing Associated Symptoms/Injury Associated Symptoms: Positive for Nausea and - (Family has noted trouble with her words and forgetfulness that started approximately 2 weeks ago); Negative for Fever, Vomiting, Sore Throat, Sinus Pressure, Numbness, Tingling, Preceding Aura, Visual Changes, Blurred Vision, Photophobia or Visual Loss Injury - CAZARES: Negative for Direct Trauma Narrative Narrative: Patient is a 43-year-old woman. She presents with headache that was unilateral at onset now bilateral. She denies photophobia or sonophobia. She does complain of neck pain and neck stiffness. She denies history of cerebral aneurysm. She denies fever, chills night sweats. She denies paresthesia, anesthesia or motor weakness in her upper or lower extremities. She denies problems with coordination or balance. She denies history of hypertension. Patient denies cardiac or respiratory symptoms. Patient does endorse nausea. Family is concerned because of her having trouble with her words and forgetfulness. She was diagnosed with migraine headaches by her primary care physician Dr. Connie Ellis. She has had no formal imaging. She states the medicines that she normally takes for her migraines have not helped i.e. Tylenol and ibuprofen. Prior similar symptoms: No Recent Illness/Hospitalization: Yes [facility] Medical History Tobacco use Diabetes mellitus, type 2 Chronic migraine Allergic rhinitis Obesity Appendicitis Home Medications ?Medication ?Instructions ?Recorded ?Last Taken ?Type NK 11/29/20 Unknown History Allergy/AdvReac Type Severity Reaction Status Date / Time No Known Allergies Allergy Verified 01/24/24 16:56 Surgical History S/P appendectomy Social History Smoking Status: Current every day smoker tobacco type: cigarettes ROS ROS ED Constitutional Constitutional ED: Denies chills, fever(s), subjective, sweats or weight loss Eyes Eyes: Denies blurry vision, change in vision or diplopia ENT ENT ED: Denies ear pain, rhinorrhea or sore throat Cardiovascular Cardiovascular: Denies chest pain, orthopnea, palpitations or racing heartbeat Respiratory/Chest Respiratory/Chest: Denies cough, dyspnea on exertion or orthopnea Gastrointestinal Gastrointestinal: Reports nausea; Denies abdominal pain, constipation, diarrhea, melena or vomiting Genitourinary Genitourinary ED: Denies dysuria, hematuria or urinary frequency Musculoskeletal Musculoskeletal: Denies arthralgias, back pain, myalgias or neck pain Integumentary Denies rash Neurologic Neurologic: Reports headache(s); Denies paresthesias or weakness Psychiatric Psychiatric: Denies anxiety or depression Endocrine Endocrinology: Denies polydipsia, polyphagia or polyuria Hematologic/Lymphatic Hematologic/Lymphatic: Denies easy bleeding or easy bruising Allergic/Immunologic Allergic/Immunologic ED: Denies mouth swelling or tongue swelling EXAM Physical Exam Const Vital Signs: 01/24/24 16:53 01/24/24 18:45 01/24/24 18:52 Temperature 97.6 F L Temperature Source Temporal Pulse Rate 122 H 103 H Respiratory Rate 18 23 H Blood Pressure 160/116 H 157/97 H Blood Pressure Mean 130 117 Pulse Ox 99 92 96 Oxygen Delivery Method Room Air Room Air Nasal Cannula Oxygen Flow Rate (L/min) 2 01/24/24 20:00 Temperature Temperature Source Pulse Rate 97 Respiratory Rate 16 Blood Pressure 163/113 H Blood Pressure Mean 129 Pulse Ox 97 Oxygen Delivery Method Nasal Cannula Oxygen Flow Rate (L/min) 2 Positive well nourished and well developed Constitutional Narrative: Patient's BMI is 35.2. General Appearance ED: well developed and NAD; Negative for cyanotic, diaphoretic or pallor HEENT Reports normocephalic, TM's clear and moist mucous membranes HEENT Narrative: Uvula is midline. There is no deviation tongue with protrusion. Neck is supple but she complains of pain with flexion. atraumatic; Negative for temporal artery tenderness or vesicular rash Face and Sinus: Negative for sinus tenderness Tympanic Membrane ED: Yes TM's clear Eyes PERRL and EOMs intact bilaterally Eyes Narrative: Funduscopic exam reveals normal cup-to-disc ratio with no papilledema. She states she was seen by judicial assistant and placed on antibiotic drops for inflammation of the back of her eye. General Eye ED: Negative for pale conjunctiva or scleral icterus Neck no lymphadenopathy, supple, no meningeal signs and no JVD Resp normal respiratory effort and clear to auscultation bilaterally Cardio regular rhythm, S1 normal heart sound, S2 normal heart sound and no murmurs; Negative for regular rate Rate: tachycardic GI non-tender and non-distended Auscultation: normoactive bowel sounds Back/Spine no CVA tenderness Extremity normal to inspection Neuro oriented x3, CN's II-XII intact bilaterally and no sensory deficits noted Neuro Narrative: There is no dysmetria. There is no truncal ataxia. Gait was not observed. [place] Coma Scale: document GCS findings Spontaneous Obeys Commands Oriented 15 Sensorium / Orientation: awake Speech: speech normal Motor Exam: strength 5/5 throughout Psych mental status grossly normal Skin General Skin Exam: elasticity normal and turgor normal; Negative for jaundice or pallor Lesions: no lesions Rashes: no rashes MDM MDM MDM Narrative Medical decision making narrative: With trouble with speech and forgetfulness need to evaluate for possible stroke. With severe headache and neck pain need to consider cerebral aneurysm/subarachnoid hemorrhage. With onset of headache 2 weeks ago blood may not be noted. Doubt this is a vasculitis/temporal arteritis. Since she has history of migraine she was treated with migraine meds i.e. ketorolac, Reglan and Benadryl. I received a call from the radiologist that she has bilateral thalamic infarcts that are subacute which would be about the onset of her symptoms and she has a basilar artery aneurysm. In light of the recent strokes that are bilateral and the aneurysm will obtain CTA of the head and neck to evaluate the carotid arteries for stenosis plaque formation and to determine size and exact location of this basilar artery aneurysm that was noted on the unenhanced scan by the radiologist. Because she is tachycardic and has elevated blood pressures complaint severe headache with reported basilar artery aneurysm she received labetalol which will help with rate control and lower her blood pressure. Lab Data Attestation: I reviewed the patient's lab results. Lab results narrative: White count is elevated 12.8 thousand with no shift. H&H slightly increased at 16.6 and 47.5. Electrolyte panel is unremarkable with the exception of a glucose of 185 with normal CO2 anion gap. Coags are normal. Patient's blood pressure remains elevated. Will give an additional dose of labetalol. Labs: Laboratory Results - last 24 hr 01/24/24 18:31 WBC 12.8 H RBC 4.96 Hgb 16.6 H Hct 47.5 H MCV 95.8 MCH 33.5 H MCHC 34.9 RDW Std Deviation 42.7 RDW Coeff of Nery 12.2 Plt Count 388 MPV 10.2 Immature Gran % (Auto) 0.300 Neut % (Auto) 64.9 Lymph % (Auto) 20.0 [place] % (Auto) 12.1 H Eos % (Auto) 1.8 Baso % (Auto) 0.9 Absolute Neuts (auto) 8.3 H Absolute Lymphs (auto) 2.55 Nucleated RBC % 0 Differential Comment SEE COMMENT Diff Path Review May foll Platelet Estimate ADEQUATE RBC Morphology N CHROM Anisocytosis RARE Macrocytosis RARE PT 15.2 H INR 1.2 APTT 25.6 Sodium 139 Potassium 3.3 L Chloride 106 Carbon Dioxide 24.0 Anion Gap 9 BUN 15 Creatinine 1.01 Estim Creat Clear Calc 69.42 Est GFR (MDRD) Af Amer 76 Est GFR (MDRD) Non-Af 63 BUN/Creatinine Ratio 14.9 Glucose 185 H Calcium 9.2 Radiography Diagnostic Testing: Clinical Impression(s) from Imaging Studies Brain CT 01/24/24 17:14 IMPRESSION: Bilateral thalamic infarcts possibly subacute and apparent basilar tip aneurysm MRI and MRA recommended for further evaluation N.B. : The above Results were Read Back by Sami Zhong MD to Everett Forde MD, and understanding confirmed on 01/24/2024 18:18:39 (ET). Electronically Signed: Sami Zhong MD at 18:14 EDT , ADDENDUM: 01/24/24 6150 IMPRESSION: Bilateral thalamic infarcts possibly subacute and apparent basilar tip aneurysm MRI and MRA recommended for further evaluation N.B. : The above Results were Read Back by Sami Zhong MD to Everett Forde , AA, and understanding confirmed on 01/24/2024 18:18:15 (ET). Electronically Signed: Sami Zhong MD at 18:14 EDT , Head/Neck CTA 01/24/24 18:18 IMPRESSION: Normal CTA of the neck. 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 Electronically Signed: Sami Zhong MD at 19:31 EDT , EKG Initial EKG: Attestation: I personally reviewed and interpreted this EKG as follows: Interpretation: Sinus Rhythm (Rate is 88. QT is prolonged. WA interval is 142 ms. QRS durations 80 ms. QTc is 488 ms. [place] is normal.) Management Discussion w/another healthcare provider: Hospitalist, Photographer Still, Radiologist and Other ([place] transfer line at [facility]) Treatment and Re-Evaluation Narrative: Spoke with Dr. Serrano neurologist at [facility]. She recommended treatment and evaluation for stroke. The neurosurgeon was Dr. Shaffer. They both concluded that the aneurysm is an incidental finding and that she needs a workup for her stroke. They recommended the patient contact the neurosurgical scheduling line at [phone] once her stroke workup has been completed and she is discharged in the hospital. The neurologist and neurosurgeon recommend permissive hypertension and not to treat the blood pressure because of the stroke. Critical Care Time Critical Care Time: Yes Critical care time (excluding procedures): 30-74 minutes (32), Including time spent: (History, physical, documentation,), Discussing w/Patient &/or Family/Certified Scrub Tech (Patient and sons), Discussing w/Consultants (Hospitalist, Dr. Piper neurologist at [facility], Dr. Shaffer neurosurgeon at [facility]) and Arranging Admission or Transfer Discharge Plan Dx/Rx/DC Orders Clinical Impression: Cerebrovascular accident (CVA) of left thalamus, Cerebrovascular accident (CVA) of right thalamus, Basilar artery aneurysm, Acute hyperglycemia Disposition Disposition: Acute Care Hospital [facility]
[2024-01-24 18:42] LABS: Absolute Lymphocyte Count 2.55 X10^3/uL (0.83-4.51); Absolute Neutrophil Count 8.3 X10^3/uL (2.0-7.7); Basophil# 0.11 X10^3/uL; Basophil% 0.9 % (0-1); Eosinophil# 0.23 X10^3/uL; Eosinophils% 1.8 % (0-5); Hematocrit 47.5 % (37-47); Hemoglobin 16.6 g/dL (12.0-15.0); Lymphocyte # 2.55 X10^3/ul (0.83-4.51); Mean Corp Hgb Conc 34.9 g/dL (32-36); Mean Corpuscular Hgb 33.5 pg (27.0-32.0); Mean Corpuscular Volume 95.8 fL (81-99); Mean Platelet Vol. 10.2 fl (6.2-12.0); Monocyte# 1.55 X10^3/uL; Monocyte% 12.1 % (0-10); NRBC Flagged by Analyzer 0 % (0-5); Neutrophil % 64.9 % (47-70); POSITIVE DIFFERENTIAL YES; Platelet Count 388 K/mm3 (150-450); RBC Distribution Width CV 12.2 % (11.6-14.6); RBC Distribution Width SD 42.7 fl (35.1-43.9); Red Blood Count 4.96 M/mm3 (4.2-5.4); White Blood Count 12.8 K/mm3 (4.4-11.0)
[2024-01-24] MEDS: Labetalol (Prefilled) 20 MG/4 ML 10 MG IV (18:47)
[2024-01-24 18:52] LABS: Differential Indicated SCAN CRITERIA MET; International Normalized Ratio 1.2; Partial Thromboplast Time 25.6 Seconds (24.1-36.2); Prothrombin Time (Protime)PT. 15.2 SECONDS (11.7-14.9)
[2024-01-24 18:57] LABS: Anion Gap 9 (5-15); BUN 15 mg/dL (7-18); BUN/Creat Ratio 14.9 RATIO (10-20); Calcium,Total 9.2 mg/dL (8.5-10.1); Chloride 106 mmol/L (98-107); Creatinine, Serum 1.01 mg/dL (0.55-1.02); EST Glomerular Filtration Rate 63 mL/min (>60); Est Glom Filt Rate - Afr Amer 76 mL/min (>60); Estimated Creatinine Clearance 69.42 ml/min; Glucose 185 mg/dL (74-106); Potassium 3.3 mmol/L (3.5-5.1); Sodium Level 139 mmol/L (136-145)
[2024-01-24 19:06] LABS: Anisocytosis RARE; Macrocytosis RARE; Platelet Estimate ADEQUATE (ADEQ); Red Cell Morphology N CHROM NORMAL (NORM C&C)
[2024-01-24] MEDS: Labetalol (Prefilled) 20 MG/4 ML IV (20:07)
--- NOTE | 2024-01-24 21:05 | EKG12_ITS ---
Test Reason : HEADACHE Blood Pressure : / mmHG Vent. Rate : 088 BPM Atrial Rate : 088 BPM P-R Int : 142 ms QRS Dur : 080 ms QT Int : 404 ms P-R-T Axes : 041 077 049 degrees QTc Int : 488 ms Normal sinus rhythm Prolonged QT Abnormal ECG Confirmed by Rey Alvarado ([id number]), proposal editor REDDY RIVERA ([id number]) on 01/27/2024 8:16:11 AM Referred By: Confirmed By:Rey Alvarado
--- NOTE | 2024-01-24 21:11 | PCM.HP.STD ---
HPI - General General Date of Admission: 01/24/24 Date of Service: 01/24/24 Chief Complaint: Headache, severe. HPI Narrative The patient is a 43 y/o F w/ PMHx: Tobacco use, Chronic Migraines, Allergic rhinitis, Diabetes mellitus type II, Alcohol abuse (4 or more shots hard liquor daily), HÉCTOR not using CPAP who presents to the [facility] ED on 01/24/24 with history of severe headache that is been persistent since 01/12/24 initially reportedly unilateral (initially on the left and then bilateral in the frontal region) now has been ongoing bilateral with a sensation of tightness wrapping around her skull with nausea without emesis and recent episodes of forgetfulness and sometimes trouble finding her words with no reported photophobia or phonophobia and no history of any trauma but she does states she has had some neck discomfort and stiffness bilaterally with no recent fevers or chills or URI type symptoms but given ongoing prompted ED evaluation. She reports that she has seen her primary care physician and had been in the past diagnosed with migraine headaches for which she takes Tylenol and ibuprofen noting that these normally resolve the situation but this has been ineffective. Patient unfortunately has been off of her medication including her diabetic medications since November because of losing her job and insurance. She notes her headache seems mildly improved and rates it currently 5 out of 10 in severity. She does state that she had an episode of nausea and emesis initially when she for started to have a headache and then again maybe a couple days prior to current presentation but only twice both with 1 bout of emesis. 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 In the ED patient administered Reglan 10 mg IV x 1, labetalol total of 30 mg IV , Toradol 50 mg IV x 1, Benadryl 25 mg IV x 1. ED discussed case and CT findings which were [facility]ist [facility] Serr[facility] and [facility] neurosurgeon Dr. Shaffer who reviewed case and imaging and reported that the fusiform aneurysm was incidental and they recommended that patient remain at [facility] for stroke workup with permissive hypertension and routine stroke evaluation including MRI of the brain, echocardiogram. Discussed current presentation and age with ED physician and hypercoagulable panel will be obtained in the ED. [facility] Medical History (Updated 01/24/24 @ 21:[address] Estela Nair MD) Alcohol abuse HÉCTOR (obstructive sleep apnea) Tobacco use Diabetes mellitus, type 2 Chronic migraine Allergic rhinitis Obesity Home Medications ?Medication ?Instructions ?Recorded ?Last Taken ?Type NK 11/29/20 Unknown History Allergy/AdvReac Type Severity Reaction Status Date / Time No Known Allergies Allergy Verified 01/24/24 16:56 Family History Mother Hypertension Diabetes Liver failure Reported as non-alcoholic in nature. Father Diabetes Surgical History S/P appendectomy Social History (Updated 01/24/24 @ 21:[address] Estela Nair MD) household members: spouse, family and children Smoking Status: Current every day smoker tobacco type: cigarettes Smoking packs per day: 1 Smoking cigarettes per day: 20.0 Years smoked: 29 Smoking pack-years: 29.00 alcohol intake: current alcohol intake frequency: 3 or more drinks per day details: 4 or > shots of whiskey daily. substance use type: does not use ROS ROS Narrative Admission Review of Systems: CONSTITUTIONAL: No weight loss, fever, chills, + weakness or fatigue. HEENT: + Headache. Eyes: No visual loss, blurred vision, double vision or yellow sclerae. Ears, Nose, Throat: No hearing loss, sneezing, congestion, runny nose or sore throat. SKIN: No rash or itching, lesions, wounds. CARDIOVASCULAR: No chest pain, chest pressure or chest discomfort, palpitations, edema, orthopnea, syncopal events. RESPIRATORY: No shortness of breath, cough or sputum, wheezing, hemoptysis. GASTROINTESTINAL: + 2 bouts of nausea and emesis. No anorexia, diarrhea, abdominal pain, melena, BRBPR. GENITOURINARY: No dysuria, frequency, urgency or retention. NEUROLOGICAL: + Headache, intermittent transient expressive aphasia per family description. No dizziness, syncope, paralysis, ataxia, numbness or tingling in the extremities, focal weakness, change in bowel or bladder control, seizure. MUSCULOSKELETAL: + muscle, back pain, joint pain or stiffness. HEMATOLOGIC: No anemia, bleeding or bruising. LYMPHATICS: No enlarged nodes. No history of splenectomy. PSYCHIATRIC: No history of depression or anxiety. ENDOCRINOLOGIC: No reports of sweating, cold or heat intolerance. No polyuria or polydipsia. ALLERGIES: + History of allergic rhinitis. Vital Signs Vital Signs Vital Signs: 01/24/24 16:53 01/24/24 18:45 01/24/24 18:52 Temperature 97.6 F L Temperature Source Temporal Pulse Rate 122 H 103 H Respiratory Rate 18 23 H Blood Pressure 160/116 H 157/97 H Blood Pressure Mean 130 117 Pulse Ox 99 92 96 Oxygen Delivery Method Room Air Room Air Nasal Cannula Oxygen Flow Rate (L/min) 2 01/24/24 20:00 Temperature Temperature Source Pulse Rate 97 Respiratory Rate 16 Blood Pressure 163/113 H Blood Pressure Mean 129 Pulse Ox 97 Oxygen Delivery Method Nasal Cannula Oxygen Flow Rate (L/min) 2 Weight Weight: 186 lb 8.177 oz Body Mass Index (BMI) 35.2 Physical Exam Narrative Physical Examination: General: Awake, alert, oriented x [address], year, month and president although she corrects herself a couple times but very quickly, remains cooperative, seated upright in the ED bed, notes headache is improving. Skin: Normal color, normal turgor, no icterus, no cyanosis. HEENT: AT/NC, EOMI, PERRLA, MMM, no carotid bruits or JVD noted. Lungs: Mildly diminished, greater bases, appropriate effort, no rales, ronchi or wheezing. Heart: Regular rate and rhythm; no gallop, rub audible. Abdomen: Soft, obese, NTTP, ND, normal BS, no appreciated HSM. Extremities: No cyanosis, clubbing, or edema. Neurological: Patient awake, alert, oriented as noted, cognitive function intact currently but per discussion with family who is present they do report that she has a expressive aphasia intermittently; pupils equally reactive to light and accommodation, cranial nerves grossly normal, moving all 4 extremities, no focal deficits, strength preserved, sensation intact, finger-nose and [id number] appropriate, equivocal Babinski. Psychiatric: Affect appears fatigued otherwise normal, no acute evidence of depressive or anxiety feelings. Results Lab / Micro Data 01/24/24 18:31 01/24/24 18:31 Labs: Laboratory Results - last 24 hr 01/24/24 18:31: WBC 12.8 H, RBC 4.96, Hgb 16.6 H, Hct 47.5 H, MCV 95.8, MCH 33.5 H, MCHC 34.9, RDW Std Deviation 42.7, RDW Coeff of Nery 12.2, Plt Count 388, MPV 10.2, Immature Gran % (Auto) 0.300, Neut % (Auto) 64.9, Lymph % (Auto) 20.0, [place] % (Auto) 12.1 H, Eos % (Auto) 1.8, Baso % (Auto) 0.9, Absolute Neuts (auto) 8.3 H, Absolute Lymphs (auto) 2.55, Nucleated RBC % 0, Differential Comment SEE COMMENT, Diff Path Review May foll, Platelet Estimate ADEQUATE, RBC Morphology N CHROM, Anisocytosis RARE, Macrocytosis RARE, PT 15.2 H, INR 1.2, APTT 25.6, Sodium 139, Potassium 3.3 L, Chloride 106, Carbon Dioxide 24.0, Anion Gap 9, BUN 15, Creatinine 1.01, Estim Creat Clear Calc 69.42, Est GFR (MDRD) Af Amer 76, Est GFR (MDRD) Non-Af 63, BUN/Creatinine Ratio 14.9, Glucose 185 H, Calcium 9.2 Imaging Radiology Impression Brain CT 01/24/24 17:14 IMPRESSION: Bilateral thalamic infarcts possibly subacute and apparent basilar tip aneurysm MRI and MRA recommended for further evaluation N.B. : The above Results were Read Back by Sami Zhong MD to Everett Forde MD, and understanding confirmed on 01/24/2024 18:18:39 (ET). Electronically Signed: Sami Zhong MD at 18:14 EDT , ADDENDUM: 01/24/24 1823 IMPRESSION: Bilateral thalamic infarcts possibly subacute and apparent basilar tip aneurysm MRI and MRA recommended for further evaluation N.B. : The above Results were Read Back by Sami Zhong MD to IRENE Ruth, and understanding confirmed on 01/24/2024 18:18:15 (ET). Electronically Signed: Sami Zhong MD at 18:14 EDT , Head/Neck CTA 01/24/24 18:18 IMPRESSION: Normal CTA of the neck. 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 Electronically Signed: Sami Zhong MD at 19:31 EDT , Assessment & Plan Assessment/Plan (1) Cerebrovascular accident (CVA) of left thalamus: (2) Cerebrovascular accident (CVA) of right thalamus: (3) Basilar artery aneurysm: PLAN: Plan The patient is a 43 y/o F w/ PMHx: Tobacco use, Chronic Migraines, Allergic rhinitis, Diabetes mellitus type II, Alcohol abuse (4 or more shots hard liquor daily), HÉCTOR not using CPAP who presents to the [facility] ED on 01/24/24 with history of severe headache that is been persistent since 01/12/24 initially reportedly unilateral now has been ongoing bilateral with a sensation of tightness wrapping around her skull with nausea without emesis and recent episodes of forgetfulness and sometimes trouble finding her words with no reported photophobia or phonophobia and no history of any trauma but she does states she has had some neck discomfort and stiffness bilaterally with no recent fevers or chills or URI type symptoms but given ongoing prompted ED evaluation. #1. Persistent severe headache, intermittent expressive aphasia per family description secondary to acute bilateral thalamic infarcts possibly subacute with an incidental fusiform aneurysm: [facility] neurologist and neurosurgeon will admit to [facility] for ongoing stroke workup with plan follow-up outpatient following discharge with neurosurgery to readdress the fusiform aneurysm which they feel is incidental. Will admit to PCU, will obtain MRI Brain, ECHO, PT/OT/Speech/Nutrition evaluation per protocol. Will allow permissive HTN, maintain on asa, add statin w/ AM FLP, fall precautions. Mag, TSH/FT4, FLP, HgbA1c requested. Hypercoaguable panel obtained in the ED per discussion with ED physician. UDS requested. Tobacco cessation strongly encouraged. Will continue neurology consultation. [facility] requested that at discharge she plan to follow-up with [facility]. Shaffer which may be arranged at her discharge. Given severity of pain with headache and CVA, will defer NSAID, may necessitate short term usage of narcotic regimen. #2. Incidental thyroid nodules: CT of the head and neck with incidental findings of tiny bilateral thyroid nodules, TSH and free T4 levels requested. Will need follow-up potential ultrasound. #3. Elevated BP without HTN diagnosis: Notably elevated BP upon presentation but per [facility] neurosurgeon as well as neurologist recommendation will continue permissive hypertension with agents per stroke protocol #4. Hypokalemia: Admission K+ 3.3, magnesium level requested, supplementation given, repeat level in AM. #5. Diabetes mellitus type II with hyperglycemia: Admission glucose 185, from prior regimen listed the patient has been on not on Farxiga and metformin previously, no recent fill but clarifying, hemoglobin A1c will be requested, nutrition will be consulted per stroke protocol, will maintain in the interim on admission glucose ADA diet, accu checks w/ ISS. #6. Obesity: Weight loss and lifestyle changes encouraged. #7. Chronic migraines: Per most recent medication list not on any chronic regimen, will be following up as noted outpatient with neurology once clinically worked up for recurrent stroke per [facility] neurology and neurosurgery recommendation. #8. Tobacco Abuse: Encouraged cessation, inpatient consultation per RT, NR if desired. #9. Allergic rhinitis: Clarifying but from prior records patient has been on cetirizine and fluticasone, will see if patient has these ongoing. #10. EtOH Abuse: Patient notes routine consumption of 4 or more shots of whiskey per day. Will maintain on CIWA protocol, MVI, thiamine and folic acid. Patient denies any alcohol withdrawal symptoms when she does not drink. Case management consulted. #11. HÉCTOR: Patient does have diagnosis and unfortunately per discussion with her and her family appears not to use a CPAP, discussed and she is willing to try here and following discussions we will discuss setting up home items to which she has been resistant previously with case management. #12. DVT prophylaxis: Lovenox. Charges/Coding Visit Charges Inpatient E&M: 36280 Init Hosp L3
[2024-01-24 21:41] LABS: Magnesium 2.3 mg/dL (1.6-2.6)
[2024-01-24 22:06] LABS: Phosphorus 2.3 mg/dL (2.5-4.9)
--- NOTE | 2024-01-24 22:10 | ECHOD_ITS ---
Reason For Study: CVA Procedure This was a 2D Doppler, Color Flow transthoracic echocardiogram. Exam performed portable in patient room. Left Ventricle Normal LV size. Left ventricular systolic function is normal. The left ventricular ejection fraction is 55 %. No regional wall motion abnormalities noted. Right Ventricle Normal RV size. Normal systolic function. Atria Normal left atrium. Normal right atrium. Bubble contrast study negative for right to left interatrial shunt. Mitral Valve Normal mitral valve. Tricuspid Valve Normal tricuspid valve. Aortic Valve Trisinus/trileaflet aortic valve. Pulmonic Valve Normal pulmonic valve. Great Vessels Normal aortic root. The pulmonary artery is normal size. Normal inferior vena cava. Pericardium/Pleural No pericardial effusion. Medication Performed a rapid injection of agitated mix of 9 cc saline and 1cc air to assess for atrial septal defect. MMode/2D Measurements & Calculations LVIDd: 4.0 cm IVSd: 1.1 cm Ao root diam: 2.7 cm LVIDs: 2.7 cm LVPWd: 1.1 cm RVDd: 2.2 cm FS: 31.7 % LAV(MOD-bp): 28.3 ml LVAd ap4: 22.8 cm2 LVAd ap2: 21.0 cm2 LAV(MOD-bp) Indexed: 15.5 ml/m2 LVLd ap4: 6.9 cm LVLd ap2: 7.1 cm LAV(MOD-sp2): 28.1 ml EDV(MOD-sp4): 62.8 ml EDV(MOD-sp2): 53.6 ml LAV(MOD-sp4): 28.5 ml EDV(sp4-el): 64.0 ml EDV(sp2-el): 52.5 ml LVAs ap4: 14.2 cm2 LVAs ap2: 13.3 cm2 LVLs ap4: 6.0 cm LVLs ap2: 6.1 cm ESV(MOD-sp4): 29.6 ml ESV(MOD-sp2): 25.3 ml ESV(sp4-el): 28.3 ml ESV(sp2-el): 24.7 ml EF(MOD-sp4): 52.8 % EF(MOD-sp2): 52.9 % EF(sp4-el): 55.7 % SV(MOD-sp4): 33.2 ml SV(MOD-sp2): 28.3 ml SV(sp4-el): 35.7 ml LA A4 area: 12.7 cm2 LA dimension(2D): 3.8 cm RA A4 area: 10.5 cm2 TAPSE: 1.9 cm Time Measurements MV dec time: 0.18 sec Doppler Measurements & Calculations MV E max uvaldo: 104.3 cm/sec Lat Peak E' Uvaldo: 7.5 cm/sec Med Peak E' Uvaldo: 7.5 cm/sec MV A max uvaldo: 88.8 cm/sec E/E' lat: 13.8 E/E' med: 13.8 MV E/A: 1.2 Ao V2 max: 130.0 cm/sec LV V1 max: 105.8 cm/sec MV dec slope: 593.4 cm/sec2 Ao max P.8 mmHg LV V1 max P.5 mmHg PA V2 max: 77.1 cm/sec ECHO/Echo Complete Interpretation Summary Normal LV size. Left ventricular systolic function is normal. The left ventricular ejection fraction is 55 %. Bubble contrast study negative for right to left interatrial shunt. Ordering Physician: Estela Nair Referring Physician: Akash Omalley MD Performed By: Joyce Kraft RDCS
[2024-01-24 22:57] LABS: Bedside Glucose 102 mg/dL (74-106)
[2024-01-24] MEDS: Aspirin 325 MG Tablet PO (23:10)
[2024-01-24] MEDS: Atorvastatin Calcium 80 MG Tablet PO (23:10)
[2024-01-24] MEDS: 0.9% Normal Saline (1000mL) 1,000 ML 100 ML IV (23:10)
[2024-01-24] MEDS: Potassium Chloride Oral Tablet 20 MEQ 40 MEQ PO (23:11)
[2024-01-25 02:09] VITALS: BP 156/95; PULSE 100; RESP 22; TEMP 36.7; O2SAT 98
[2024-01-25 03:37] VITALS: BMI 35.2
[2024-01-25 05:00] VITALS: BMI 35.2
[2024-01-25 05:11] VITALS: O2SAT 97
[2024-01-25] MEDS: Insulin Lispro 100 UNIT/ML INSULN.PEN SC ×2 (05:58→11:36)
[2024-01-25 06:26] LABS: Absolute Lymphocyte Count 2.82 X10^3/uL (0.83-4.51); Absolute Neutrophil Count 6.8 X10^3/uL (2.0-7.7); Basophil# 0.12 X10^3/uL; Eosinophil# 0.32 X10^3/uL; Eosinophils% 2.7 % (0-5); Hematocrit 46.3 % (37-47); Hemoglobin 15.3 g/dL (12.0-15.0); Lymphocyte # 2.82 X10^3/ul (0.83-4.51); Lymphocyte % 23.5 % (19-41); Mean Corpuscular Hgb 32.7 pg (27.0-32.0); Mean Corpuscular Volume 98.9 fL (81-99); Mean Platelet Vol. 10.4 fl (6.2-12.0); Monocyte# 1.91 X10^3/uL; Monocyte% 15.9 % (0-10); NRBC Flagged by Analyzer 0 % (0-5); Neutrophil # 6.82 X10^3/uL (2.7-7.7); Neutrophil % 56.7 % (47-70); POSITIVE DIFFERENTIAL YES; Platelet Count 376 K/mm3 (150-450); RBC Distribution Width CV 12.5 % (11.6-14.6); Red Blood Count 4.68 M/mm3 (4.2-5.4)
[2024-01-25 06:33] LABS: Differential Indicated SCAN CRITERIA MET
[2024-01-25 06:44] LABS: Bedside Glucose 224 mg/dL (74-106)
[2024-01-25 07:05] LABS: ALB/GLOB Ratio 0.8 RATIO (0.9-2.4); AST(SGOT) 69 U/L (15-37); Alanine Aminotransfer ALT/SGPT 171 U/L (13-56); Albumin, Serum 3.2 g/dL (3.2-5.0); Alkaline Phosphatase 84 U/L (45-117); Anion Gap 3 (5-15); BUN 14 mg/dL (7-18); BUN/Creat Ratio 15.2 RATIO (10-20); Chloride 112 mmol/L (98-107); Cholesterol 168 mg/dL (200); Creatinine, Serum 0.92 mg/dL (0.55-1.02); EST Glomerular Filtration Rate 70 mL/min (>60); Est Glom Filt Rate - Afr Amer 85 mL/min (>60); Estimated Creatinine Clearance 76.22 ml/min; Globulin 3.8 g/dL (2.2-4.2); Glucose 236 mg/dL (74-106); High Density Lipoprotein 34 mg/dL; Potassium 3.6 mmol/L (3.5-5.1); Sodium Level 139 mmol/L (136-145); T4 Free Direct 0.88 ng/dL (0.76-1.46); Thyroid Stim Hormone (TSH) 1.23 uIU/mL (0.358-3.74); Triglycerides 122 mg/dL; Very Low Density Lipoprotein 24 mg/dL (5-40)
[2024-01-25 07:06] LABS: Differential Comment SCANNED
[2024-01-25 07:47] VITALS: O2SAT 99
[2024-01-25] MEDS: Thiamine Hydrochloride 100 MG Tablet PO (07:47)
[2024-01-25] MEDS: Aspirin 81 MG TAB.CHEW PO (07:47)
[2024-01-25] MEDS: Multivitamins,Ther W-Minerals Tablet 1 TABLET PO (07:47)
[2024-01-25] MEDS: Folic Acid 1 MG Tablet PO (07:47)
[2024-01-25] MEDS: Enoxaparin 40 MG/0.4 ML Syringe SC (07:48)
[2024-01-25 07:52] LABS: Hemoglobin A1c 8.3 % (3.8-5.6)
[2024-01-25 07:56] VITALS: BP 150/94; PULSE 91; RESP 18; TEMP 36.8; O2SAT 96
--- NOTE | 2024-01-25 07:56 | PN.HOSP_ITS ---
Reason for Visit Reason for Visit: Diagnoses Other cerebral infarction due to occlusion or stenosis of small artery (01/24/24) Aneurysm of other precerebral arteries (01/24/24) Subjective Subjective Feels better. Headache better. Objective Data Objective Data Vital Signs: Vital Signs Temp Pulse Resp BP Pulse Ox O2 Del Method O2 Flow Rate 36.7 C 100 22 H 156/95 H 99 Nasal Cannula 4 01/25/24 02:09 01/25/24 02:09 01/25/24 02:09 01/25/24 02:09 01/25/24 07:47 01/25/24 07:47 01/25/24 07:47 Oxygen Flow Rate (L/min) 4 Oxygen Delivery Method Nasal Cannula Weight: 84.6 kg Body Mass Index (BMI) 35.2 Lab / Micro Data 01/25/24 05:55 01/25/24 05:55 Labs: Laboratory Results - last 24 hr 01/24/24 18:31: WBC 12.8 H, RBC 4.96, Hgb 16.6 H, Hct 47.5 H, MCV 95.8, MCH 33.5 H, MCHC 34.9, RDW Std Deviation 42.7, RDW Coeff of Nery 12.2, Plt Count 388, MPV 10.2, Immature Gran % (Auto) 0.300, Neut % (Auto) 64.9, Lymph % (Auto) 20.0, M arpit % (Auto) 12.1 H, Eos % (Auto) 1.8, Baso % (Auto) 0.9, Absolute Neuts (auto) 8.3 H, Absolute Lymphs (auto) 2.55, Nucleated RBC % 0, Differential Comment SEE COMMENT, Diff Path Review May foll, Platelet Estimate ADEQUATE, RBC Morphology N CHROM, Anisocytosis RARE, Macrocytosis RARE, PT 15.2 H, INR 1.2, APTT 25.6, Sodium 139, Potassium 3.3 L, Chloride 106, Carbon Dioxide 24.0, Anion Gap 9, BUN 15, Creatinine 1.01, Estim Creat Clear Calc 69.42, Est GFR (MDRD) Af Amer 76, Est GFR (MDRD) Non-Af 63, BUN/Creatinine Ratio 14.9, Glucose 185 H, Calcium 9.2, Phosphorus 2.3 L, Magnesium 2.3 01/24/24 22:33: POC Glucose 102 01/25/24 05:55: WBC 12.0 H, RBC 4.68, Hgb 15.3 H, Hct 46.3, MCV 98.9, MCH 32.7 H , MCHC 33.0 D, RDW Std Deviation 45.0 H, RDW Coeff of Nery 12.5, Plt Count 376, MPV 10.4, Immature Gran % (Auto) 0.200, Neut % (Auto) 56.7, Lymph % (Auto) 23.5, [place] % (Auto) 15.9 H, Eos % (Auto) 2.7, Baso % (Auto) 1.0, Absolute Neuts (auto) 6.8, Absolute Lymphs (auto) 2.82, Nucleated RBC % 0, Differential Comment SCANNED, Diff Path Review November, Sodium 139, Potassium 3.6, Chloride 112 H, Carbon Dioxide 24.0, Anion Gap 3 L, BUN 14, Creatinine 0.92, Estim Creat Clear Calc 76.22, Est GFR (MDRD) Af Amer 85, Est GFR (MDRD) Non-Af 70, BUN/Creatinine Ratio 15.2, Glucose 236 H, Hemoglobin A1c 8.3 H, Calcium 9.0, Total Bilirubin 0.30, AST 69 H, ALT 171 H, Alkaline Phosphatase 84, Total Protein 7.0, Albumin 3.2, Globulin 3.8, Albumin/Globulin Ratio 0.8 L, Triglycerides 122, Cholesterol 168, LDL Cholesterol 110, VLDL Cholesterol 24, HDL Cholesterol 34 L, TSH 1.23, Free T4 0.88 01/25/24 05:57: POC Glucose 224 H Radiography Diagnostic Testing: Radiology Impression Brain CT 01/24/24 17:14 IMPRESSION: Bilateral thalamic infarcts possibly subacute and apparent basilar tip aneurysm MRI and MRA recommended for further evaluation N.B. : The above Results were Read Back by Sami Zhong MD to Everett Forde MD, and understanding confirmed on 01/24/2024 18:18:39 (ET). Electronically Signed: Sami Zhong MD at 18:14 EDT , ADDENDUM: 01/24/24 1823 IMPRESSION: Bilateral thalamic infarcts possibly subacute and apparent basilar tip aneurysm MRI and MRA recommended for further evaluation N.B. : The above Results were Read Back by Sami Zhong MD to IRENE Ruth, and understanding confirmed on 01/24/2024 18:18:15 (ET). Electronically Signed: Sami Zhong MD at 18:14 EDT , Head/Neck CTA 01/24/24 18:18 IMPRESSION: Normal CTA of the neck. 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 Electronically Signed: Sami Zhong MD at 19:31 EDT , Physical Exam Const alert and no apparent distress HEENT head/scalp atraumatic and moist oral mucous membranes Eyes PERRL Resp normal respiratory effort and no retractions Extremity normal to inspection Neuro Sensorium / Orientation: awake Assessment & Plan Assessment/Plan (1) Cerebrovascular accident (CVA) of left thalamus: (2) Cerebrovascular accident (CVA) of right thalamus: (3) Basilar artery aneurysm: PLAN: Plan acute thalamic infarcts * noted on CT * MRI shows small bilateral thalamic infarcts. Echo shows EF of 55%. Bubble study was negative for shunt. * neuro consultation. Recommending aspirin, statin, additional workup as already has been performed. Hypercoagulable panel (which has been ordered but still pending) * on ASA and HIS Acute migraine * Resolved * MRI brain, Echo, PT/OT/Speech/Nutrition evaluation per protocol * Permissive HTN. * Neurology consultation. * Patient states that she gets migraines every 2 to 3 months. Therefore, I do not feel prophylactic treatment is necessary at this time. basilar artery aneurysm * incendental finding * case previously discussed with [facility] neurosurgery (Dr. Shaffer) who did not feel it was cause of her sx and recommended outpt follow up. Incidental thyroid nodules: * CT of the head and neck with incidental findings of tiny bilateral thyroid nodules * TSH and free T4 WNL * No additional work up at this time. Hypokalemia: * Admission K+ 3.3. Improved with replacement to 3.6. Will give another 40meQ. * Mag WNL Diabetes mellitus type II * a1c 8.3 * SSI for now. EtOH Abuse: * Patient notes routine consumption of 4 or more shots of whiskey per day. Will maintain on CIWA protocol, MVI, thiamine and folic acid. Patient denies any alcohol withdrawal symptoms when she does not drink. Case management consulted. Chronic conditions: * Obesity class II: complicates care and recovery. * Tobacco Abuse: Encouraged cessation, inpatient consultation per RT, NR if desired. * Allergic rhinitis * HÉCTOR: Patient does have diagnosis and unfortunately per discussion with her and her family appears not to use a CPAP, discussed and she is willing to try here and following discussions we will discuss setting up home items to which she has been resistant previously with case management. VTE prophylaxis: enoxaparin. Charges/Coding Visit Charges Inpatient E&M: 99919 Subs Hosp L2
--- NOTE | 2024-01-25 09:00 | MRI_ITS ---
HISTORY: CVA, HEADACHE, NECK PAIN AND STIFFNESS, FORGETFUL, PREVIOUS CT. TECHNIQUE: Multiplanar and multisequence MR images of the brain were obtained without contrast. 274 images. COMPARISON: CT prior day. FINDINGS: BRAIN PARENCHYMA: 9 mm zone of restricted diffusion in the right thalamus extending to the midbrain. 7 mm focus of restricted diffusion in the left thalamus. No acute intracranial hemorrhage identified. Very mild chronic white matter changes. CSF SPACES: Cerebral ventricles, cortical sulci, and other extra-axial CSF spaces within normal limits in size for age. No significant midline shift or other mass effect.No extra-axial fluid collection. VASCULAR SYSTEM: 6 mm basilar tip aneurysm. PARANASAL SINUSES AND MASTOID AIR CELLS: No significant air fluid levels. ORBITS: Symmetric contents. MRI/Brain without Contrast IMPRESSION: Small acute bilateral thalamic infarcts, corresponding to the CT findings. 6 mm basilar tip aneurysm. Electronically Signed: Charo Fabian MD at 10:30 EDT ,
[2024-01-25 09:33] VITALS: BMI 35.2
--- NOTE | 2024-01-25 10:38 | CASEMGMT ---
LINDA ROSARIO Assessment Face to Face with patient for initial transition planning/care coordination assessment. LINDA ROSARIO introduced self and role at [facility], pt voices understanding. Pt is A&Ox4 and is resting comfortably in the chair and is calm. Care providers, pharmacy, and demographics verified. Admitting dx: CVA, Severe Headache PCP: Akash Omalley Specialists: Denies [facility]erred [facility]acy[facility] Insurance: Pt states that she is currently unemployed and does not have insurance. Pt educated that the financial department will assist the pt. SW also notified and to provide resources. Prescription Benefit: None at this time. Pt was educated about free services such as Good Rx at this time LNOK: [facility] (H) Living Arrangements: Pt lives with her , 22 y/o son, and COLE in a single story home with 5 steps to enter ADLs/IADLs: Ind Transportation: Self, DME: B[facility] and enough supplies. CPAP @ [facility] with no additional oxygen. Pt denies further DME uses or needs HHC/SNF: Denies history or needs Pt?s goal: Home Plan: Home no needs. 6-Click is 24. Pt was cleared by therapy. Pt denies further questions at this time. The only concern the pt has at this time is about finances. SW to follow and provide resources. Elizabeth Ramirez RN, CM
--- NOTE | 2024-01-25 10:41 | CON.PCM.NE_ITS ---
Assessment and Plan: Stroke Assessment/Plan ROBBY PARK is a 43 F with a history of Tobacco use, Chronic Migraines, Allergic rhinitis, Diabetes mellitus type II, Alcohol abuse, HÉCTOR not using CPAP who presents to the [facility] ED on 01/24/24 with history of severe headache that is been persistent since 01/12/24. Also had confusion which has gotten better. Not a TNK or thrombectomy candidate Neurological examination shows intact examination. Neuroimaging shows CT: Bilateral thalamic strokes, CTA: Basilar tip aneurysm, MRI: Bilateral thalamic strokes, basilar tip aneurysm. LDL: 110, HbA1C: 8.3. Has bilateral thalamic stroke consistent with Artery of [place] stroke, possible small vessel disease vs other causes. W/up in progress ECHO, HC pending. 1. ASA for stroke prevention 2. Statin to keep LDL <70 3. ECHO, Hypercoag labs pending 4. Permissive hypertension in acute phase. Aggressive control once out of acute phase. 5. DM2: Target euglycemia 6. HÉCTOR: CPAP as tolerated 7. Smoking cessation 8. Stroke education 9. 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 Thanks for the consult. I spent 72 minutes in evaluation and management of this patient. HPI Consult Data Date of Consult: 01/25/24 HPI Narrative HPI Narrative: ROBBY PARK, is a 43 F with Tobacco use, Chronic Migraines, Allergic rhinitis, Diabetes mellitus type II, Alcohol abuse, HÉCTOR not using CPAP who presents to the [facility] ED on 01/24/24 with history of severe headache that is been persistent since 01/12/24. It was unilateral (initially on the left and then bilateral in the frontal region) now has been ongoing bilateral with a sensation of tightness wrapping around her skull with nausea without emesis. She also reports recent episodes of forgetfulness and sometimes trouble finding her words. No photophobia or phonophobia and or trauma. She has neck discomfort and stiffness bilaterally with no recent fevers or chills or URI type symptoms but given ongoing prompted ED evaluation. She reports her headache is getting better but has not subsided. At baseline her migraines were unilateral with nausea, vomiting would last for a few days. Patient unfortunately has been off of her medication including her diabetic medications since November because of losing her job and insurance. 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 [facility] Medical History Alcohol abuse HÉCTOR (obstructive sleep apnea) Tobacco use Diabetes mellitus, type 2 Chronic migraine Allergic rhinitis Obesity Home Medications ?Medication ?Instructions ?Recorded ?Last Taken ?Type cetirizine 10 mg tablet 10 mg PO QHS allergies 01/24/24 Unknown History dapagliflozin propanediol 10 mg 10 mg PO DAILY diabetes 01/24/24 Unknown History tablet (Farxiga) fluticasone propionate 50 2 spray intranasal DAILY allergies 01/24/24 Unknown History mcg/actuation nasal spray,suspension metformin 500 mg tablet,extended 1,000 mg PO DAILY diabetes 01/24/24 Unknown History release 24 hr prednisolone acetate 1 % eye 1 drp LEFT EYE Q3H infection 01/24/24 Unknown History drops,suspension semaglutide 3 mg tablet (Rybelsus) 3 mg PO DAILY diabetes 01/24/24 Unknown History Allergy/AdvReac Type Severity Reaction Status Date / Time No Known Allergies Allergy Verified 01/24/24 16:56 Family History Mother Hypertension Diabetes Liver failure Reported as non-alcoholic in nature. Father Diabetes Surgical History S/P appendectomy Social History (Updated 01/24/24 @ 21:[address] Estela Nair MD) household members: spouse, family and children Smoking Status: Current every day smoker tobacco type: cigarettes Smoking packs per day: 1 Smoking cigarettes per day: 20.0 Years smoked: 29 Smoking pack-years: 29.00 alcohol intake: current alcohol intake frequency: 3 or more drinks per day details: 4 or > shots of whiskey daily. substance use type: does not use Vital Signs Vital Signs Vital Signs: 01/24/24 16:53 01/24/24 18:45 01/24/24 18:52 Temperature 97.6 F L Temperature Source Temporal Pulse Rate 122 H 103 H Respiratory Rate 18 23 H Blood Pressure 160/116 H 157/97 H Blood Pressure Mean 130 117 Blood Pressure Source Blood Pressure Position Blood Pressure Location Pulse Ox 99 92 96 Oxygen Delivery Method Room Air Room Air Nasal Cannula Oxygen Flow Rate (L/min) 2 01/24/24 20:00 01/24/24 21:56 01/24/24 21:59 Temperature 98 F Temperature Source Pulse Rate 97 91 93 Respiratory Rate 16 27 H 23 H Blood Pressure 163/113 H 163/97 H 173/110 H Blood Pressure Mean 129 119 131 Blood Pressure Source Blood Pressure Position Blood Pressure Location Pulse Ox 97 98 97 Oxygen Delivery Method Nasal Cannula Nasal Cannula Oxygen Flow Rate (L/min) 2 2 01/24/24 22:11 01/24/24 23:16 01/25/24 02:09 Temperature 98.4 F 98.1 F Temperature Source Oral Temporal Pulse Rate 93 100 Respiratory Rate 20 H 22 H Blood Pressure 137/84 H 156/95 H Blood Pressure Mean 101 115 Blood Pressure Source Monitor Monitor Blood Pressure Position Sitting Supine Blood Pressure Location Left Arm Left Arm Pulse Ox 98 98 98 Oxygen Delivery Method Room Air Room Air Room Air Oxygen Flow Rate (L/min) 01/25/24 05:11 01/25/24 07:47 01/25/24 07:56 Temperature 98.2 F Temperature Source Oral Pulse Rate 91 Respiratory Rate 18 Blood Pressure 150/94 H Blood Pressure Mean 112 Blood Pressure Source Monitor Blood Pressure Position Sitting Blood Pressure Location Left Arm Pulse Ox 97 99 96 Oxygen Delivery Method Room Air Nasal Cannula Room Air Oxygen Flow Rate (L/min) 4 Weight Weight: 84.6 kg Body Mass Index (BMI) 35.2 EEG Results Procedure Details EEG Procedure Details: ROBBY PARK is a 43 year old F with a past medical history of , who presents for evaluation of Electroencephalogram on DATE at TIME NIHSS NIHSS Nursing Documentation NIHSS Nursing Documentation: NIHSS: Ischemic Stroke/TIA Start: 01/24/24 22:10 Text: For PCU Patients: NIH and Neuro Check every 4 Status: Active hours, PRN and with change in RN caregiver. Freq: [id number] Protocol: Activity Type Activity Date Activity User E-sign Co-sign Detail Recorded Client Recorded Date Recorded By Document 01/25/24 07:00 JI [id number] 01/25/24 09:32 MANUEL 01/25/24 07:00 NIH Stroke Scale [NIHSS] A score of 0 is normal or asymptomatic . Total possible score is 42. Inpatient: RN or Physician to activate a stroke alert for onset of new stroke symptoms or with NIHSS increase >/= 3 points. Following change in neurological status, NIHSS will be performed per physician order or more frequently PRN. -1a. Level of Consciousness Alert; keenly responsive -1b. LOC Questions Answers BOTH questions correctly. -1c. LOC Commands Performs both tasks correctly . -2. Best Gaze Normal -3. Visual No visual loss -4. Facial Palsy Normal symmetrical movements -5a. Left Arm No drift; arm holds 90 (or 45 ) degrees for full 10 seconds -5b. Right Arm No drift; arm holds 90 (or 45 ) degrees for full 10 seconds -6a. Left Leg No drift; leg holds 30-degree position for full 5 seconds -6b. Right Leg No drift; leg holds 30-degree position for full 5 seconds -7. Limb Ataxia Absent -8. Sensory Normal; no sensory loss -9. Best Language No aphasia; normal -10. Dysarthria Normal -11. Extinction and Inattention No abnormality -Total 0 Query Text:A score of 0 is normal or asymptomatic. Total possible score is 42 . ED: Notify Physician for NIHSS increase by > / = 3 points. Inpatient: RN or Physician to activate a stroke alert for NIHSS increase of > / = 3 points. Coma Scale [Assess] -Eye Opening Spontaneous -Motor Obeys Commands -Verbal Oriented [Total] -Coma Scale Total 15 NIHSS 1a. Level of Consciousness: Alert; keenly responsive 1b. LOC Questions: Answers BOTH questions correctly. 1c. LOC Commands: Performs both tasks correctly. 2. Best Gaze: Normal 3. Visual: No visual loss 4. Facial Palsy: Normal symmetrical movements 5a. Left Arm: No drift; arm holds 90 (or 45) degrees for full 10 seconds 5b. Right Arm: No drift; arm holds 90 (or 45) degrees for full 10 seconds 6a. Left Leg: No drift; leg holds 30-degree position for full 5 seconds 6b. Right Leg: No drift; leg holds 30-degree position for full 5 seconds 7. Limb Ataxia: Absent 8. Sensory: Normal; no sensory loss 9. Best Language: No aphasia; normal 10. Dysarthria: Normal 11. Extinction and Inattention: No abnormality Total: 0 Physical Exam Const alert, oriented x3 and no apparent distress HEENT normocephalic Eyes EOMs intact bilaterally Resp normal respiratory effort Neuro oriented x3, CN's II-XII intact bilaterally, moves all extremities, no focal motor deficits and no sensory deficits noted Neuro Narrative: Awake, alert X3 Speech fluent, comprehension intact CN 2-12 intact Motor: 5/5 Sensation: Intact No ataxia Lab / Micro Data 01/25/24 05:55 01/25/24 05:55 Labs: Laboratory Results - last 24 hr 01/24/24 18:31: WBC 12.8 H, RBC 4.96, Hgb 16.6 H, Hct 47.5 H, MCV 95.8, MCH 33.5 H, MCHC 34.9, RDW Std Deviation 42.7, RDW Coeff of Nery 12.2, Plt Count 388, MPV 10.2, Immature Gran % (Auto) 0.300, Neut % (Auto) 64.9, Lymph % (Auto) 20.0, M arpit % (Auto) 12.1 H, Eos % (Auto) 1.8, Baso % (Auto) 0.9, Absolute Neuts (auto) 8.3 H, Absolute Lymphs (auto) 2.55, Nucleated RBC % 0, Differential Comment SEE COMMENT, Diff Path Review May foll, Platelet Estimate ADEQUATE, RBC Morphology N CHROM, Anisocytosis RARE, Macrocytosis RARE, PT 15.2 H, INR 1.2, APTT 25.6, Sodium 139, Potassium 3.3 L, Chloride 106, Carbon Dioxide 24.0, Anion Gap 9, BUN 15, Creatinine 1.01, Estim Creat Clear Calc 69.42, Est GFR (MDRD) Af Amer 76, Est GFR (MDRD) Non-Af 63, BUN/Creatinine Ratio 14.9, Glucose 185 H, Calcium 9.2, Phosphorus 2.3 L, Magnesium 2.3 01/24/24 22:33: POC Glucose 102 01/25/24 05:55: WBC 12.0 H, RBC 4.68, Hgb 15.3 H, Hct 46.3, MCV 98.9, MCH 32.7 H , MCHC 33.0 D, RDW Std Deviation 45.0 H, RDW Coeff of Nery 12.5, Plt Count 376, MPV 10.4, Immature Gran % (Auto) 0.200, Neut % (Auto) 56.7, Lymph % (Auto) 23.5, [place] % (Auto) 15.9 H, Eos % (Auto) 2.7, Baso % (Auto) 1.0, Absolute Neuts (auto) 6.8, Absolute Lymphs (auto) 2.82, Nucleated RBC % 0, Differential Comment SCANNED, Diff Path Review November foll, Sodium 139, Potassium 3.6, Chloride 112 H, Carbon Dioxide 24.0, Anion Gap 3 L, BUN 14, Creatinine 0.92, Estim Creat Clear Calc 76.22, Est GFR (MDRD) Af Amer 85, Est GFR (MDRD) Non-Af 70, BUN/Creatinine Ratio 15.2, Glucose 236 H, Hemoglobin A1c 8.3 H, Calcium 9.0, Total Bilirubin 0.30, AST 69 H, ALT 171 H, Alkaline Phosphatase 84, Total Protein 7.0, Albumin 3.2, Globulin 3.8, Albumin/Globulin Ratio 0.8 L, Triglycerides 122, Cholesterol 168, LDL Cholesterol 110, VLDL Cholesterol 24, HDL Cholesterol 34 L, TSH 1.23, Free T4 0.88 01/25/24 05:57: POC Glucose 224 H Imaging Radiology Impression Brain CT 01/24/24 17:14 IMPRESSION: Bilateral thalamic infarcts possibly subacute and apparent basilar tip aneurysm MRI and MRA recommended for further evaluation N.B. : The above Results were Read Back by Sami Zhong MD to Everett Forde MD, and understanding confirmed on 01/24/2024 18:18:39 (ET). Electronically Signed: Sami Zhong MD at 18:14 EDT Reading Location ID and State: [address] [place] [address] Tel [phone], Service support , ADDENDUM: 01/24/24 1823 IMPRESSION: Bilateral thalamic infarcts possibly subacute and apparent basilar tip aneurysm MRI and MRA recommended for further evaluation N.B. : The above Results were Read Back by Sami Zhong MD to IRENE Ruth, and understanding confirmed on 01/24/2024 18:18:15 (ET). Electronically Signed: Sami Zhong MD at 18:14 EDT , Head/Neck CTA 01/24/24 18:18 IMPRESSION: Normal CTA of the neck. 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 Electronically Signed: Sami Zhong MD at 19:31 EDT , Brain MRI 01/25/24 09:00 IMPRESSION: Small acute bilateral thalamic infarcts, corresponding to the CT findings. 6 mm basilar tip aneurysm. Electronically Signed: Charo Fabian MD at 10:30 EDT , Active Medications Active Medications Active Medications: Current Medications Generic Name Dose Route Start Last Admin Trade Name Freq PRN Reason Stop Dose Admin Acetaminophen 650 mg 01/24/24 22:10 Acetaminophen 325 Mg Tablet PO Q4H PRN PRN Fever, pain 1-05/07 Al Hydroxide/Mg Hydroxide 30 ml 01/24/24 22:10 Mag Hydrox/Al Hydrox/Simeth 30 Ml Udc PO Q6H PRN PRN Gastric Burning Albuterol Sulfate 2.5 mg 01/24/24 22:10 Albuterol 2.5 Mg/3 Ml Vial.Neb. INHALATION Q2H PRN PRN Dyspnea, wheezing Aspirin 81 mg 01/25/24 08:00 01/25/24 07:47 Aspirin 81 Mg Tab.Chew PO 81 mg BREAKFAST MATT Administration Atorvastatin Calcium 80 mg 01/24/24 22:10 01/24/24 23:10 Atorvastatin Calcium 80 Mg Tablet PO 80 mg QHS MATT Administration Enoxaparin Sodium 40 mg 01/25/24 10:00 01/25/24 07:48 Enoxaparin 40 Mg/0.4 Ml Syringe SC 40 mg DAILY MATT Administration Folic Acid 1 mg 01/25/24 08:00 01/25/24 07:47 Folic Acid 1 Mg Tablet PO 1 mg BREAKFAST MATT Administration Glucagon 1 mg 01/24/24 22:10 Glucagon 1 Mg/Ml Syringe IM X1 PRN HYPOGLYCEMIA Protocol Guaifenesin 20 ml 01/24/24 22:10 Guaifenesin 10 Ml Udc (200mg/10ml) PO Q4H PRN PRN COUGH Hydralazine HCl 5 mg 01/24/24 22:10 Hydralazine 20 Mg/Ml Vial IV 01/25/24 22:10 Q30M PRN maintain BP parameters with HR <60 Dextrose 250 mls @ 999 mls/hr 01/24/24 22:10 Dextrose 10%-Water IV .Q16M PRN HYPOGLYCEMIA Protocol Sodium Chloride 250 mls @ 15 mls/hr 01/24/24 22:21 IV .[id number] PRN Additional IVPB Infusion Sodium Chloride 250 mls @ 15 mls/hr 01/24/24 22:21 IV .[id number] PRN Saline Flush Insulin Human Lispro 0 unit 01/24/24 22:10 01/25/24 05:58 Insulin Lispro 100 Unit/Ml Insuln.Pen SC 4 units ACHS MATT Administration Protocol Labetalol HCl 10 - 20 mg 01/24/24 22:10 Labetalol (Prefilled) 20 Mg/4 Ml IV 01/25/24 22:10 Q10M PRN PRN maintain BP parameters with HR >/=60 Lorazepam 2 mg 01/24/24 22:10 Lorazepam 2 Mg/Ml Syringe IV UD PRN CIWA score >/=15. Protocol Lorazepam 2 mg 01/24/24 22:10 Lorazepam 2 Mg/Ml Syringe IV Q2H PRN PRN CIWA score > 8 but <15 Protocol Lorazepam 2 mg 01/24/24 22:10 Lorazepam 1 Mg Tablet PO UD PRN CIWA score >/=15. Protocol Lorazepam 2 mg 01/24/24 22:10 Lorazepam 1 Mg Tablet PO Q2H PRN PRN CIWA score > 8 but <15 Protocol Melatonin 3 mg 01/24/24 22:10 Melatonin 3 Mg Tablet PO QHS PRN PRN INSOMNIA Multivitamins/Minerals 1 tablet 01/25/24 08:00 01/25/24 07:47 Multivitamins,Ther W-Minerals Tablet PO 1 tablet BREAKFAST MATT Administration Ondansetron HCl 4 mg 01/24/24 22:10 Ondansetron 4 Mg/2 Ml Vial IV Q8H PRN PRN NAUSEA/VOMITING Oxycodone HCl 5 mg 01/24/24 22:10 Oxycodone 5 Mg Tablet PO Q4H PRN PRN Pain Score 4-10 Prochlorperazine Edisylate 5 mg 01/24/24 22:10 Prochlorperazine 10 Mg/2 Ml Vial IV Q4H PRN PRN Breakthrough Nausea/Vomiting Senna/Docusate Sodium 2 tablet 01/24/24 22:10 Senna/Docusate Sodium 1 Tablet PO BID PRN PRN Constipation Sodium Chloride 10 - 40 ml 01/24/24 22:21 0.9% Saline Lock 10 Ml Syringe IV UD PRN SALINE FLUSH Thiamine HCl 100 mg 01/25/24 08:00 01/25/24 07:47 Thiamine Hydrochloride 100 Mg Tablet PO 100 mg BREAKFAST MATT Administration
[2024-01-25 11:55] LABS: Bedside Glucose 185 mg/dL (74-106)
--- NOTE | 2024-01-25 12:29 | CASEMGMT ---
Social Work Pt scored a 9 on the PHQ-9. However, pt attributes all symptoms showing up on the PHQ-9 as related to the stroke and headache, not mental health. She states all symptoms started on the 16th when the stroke happened. Pt reports being tired, having little energy, no interest doing things, moving more slowly, trouble concentrating. Pt states has no history of depression or anxiety. Pt not interested in any mental health services at this time, so list of resources not given. SW did speak w/pt about alcohol use. Pt states drinks 4 shots a day, states has been doing this since forever. Pt states she and her both plan to quit. She is open to taking information on [employer] but thinks they will just do this on their own. SW did provide a brochure for [employer] to pt. No further needs in regard to PHQ-9. BOUCHRA Lua
--- NOTE | 2024-01-25 12:34 | CASEMGMT ---
Social Work SW met w/pt to complete PHQ-9, to speak w/her about substance abuse, and to provide resources. See other note regarding PHQ-9 and substance abuse. SW provided to pt resources for self pay status, including [employer], [employer], [facility] assist, [employer], Medicaid application, [email or web address] card and number, prescription resources. Pt would be interested in speaking w/Tiffanie from [employer] about applying for Medicaid, SW sent her an email. No further social service needs anticipated at this time. BOUCHRA Lua
[2024-01-25] MEDS: Acetaminophen 325 MG Tablet 650 MG PO (12:37)
--- NOTE | 2024-01-25 13:06 | PCM.DC.SUM ---
Providers Date of Admission: 01/24/24 Primary Care Physician: Dr. Akash Omalley MD Consultations 01/24/24 22:10 Consult: Tele-Neurology Routine Consulting Provider: [facility] Reason for Consult: Acute Ischemic Stroke/TIA EMERGENT Consult: No MD Notified: Yes Date Notified: 01/24/24 Time Notified: 23:11 Method of Notification: Answering Service Nursing Unit Staff Notify [facility] of Tele-Neurology Consult: Yes Reason For Visit: CVA, SEVERE HEADACHE Diagnosis Discharge Diagnosis (1) Cerebrovascular accident (CVA) of left thalamus: Status: Acute Code(s): I63.81 - Other cerebral infarction due to occlusion or stenosis of small artery (2) Cerebrovascular accident (CVA) of right thalamus: Status: Acute Code(s): I63.81 - Other cerebral infarction due to occlusion or stenosis of small artery (3) Basilar artery aneurysm: Status: Acute Code(s): I72.5 - Aneurysm of other precerebral arteries Plan acute thalamic infarcts noted on CT MRI shows small bilateral thalamic infarcts. Echo shows EF of 55%. Bubble study was negative for shunt. neuro consultation. Recommending aspirin, statin, additional workup as already has been performed. Hypercoagulable panel (which has been ordered but still pending) on ASA and HIS Hypercoagulable panel ordered and results are pending. Acute migraine Resolved MRI brain, Echo, PT/OT/Speech/Nutrition evaluation per protocol Permissive HTN. Neurology consultation. Patient states that she gets migraines every 2 to 3 months. Therefore, I do not feel prophylactic treatment is necessary at this time. basilar artery aneurysm incendental finding case previously discussed with [facility] neurosurgery (Dr. Shaffer) who did not feel it was cause of her sx and recommended outpt follow up. Patient states that this is actually a known problem and she has seen actually neurosurgery in the past at [facility]. Incidental thyroid nodules: CT of the head and neck with incidental findings of tiny bilateral thyroid nodules TSH and free T4 WNL No additional work up at this time. Hypokalemia: Admission K+ 3.3. Improved with replacement to 3.6. Will give another 40meQ. Mag WNL Diabetes mellitus type II a1c 8.3 SSI for now. EtOH Abuse: Patient notes routine consumption of 4 or more shots of whiskey per day. Will maintain on CIWA protocol, MVI, thiamine and folic acid. Patient denies any alcohol withdrawal symptoms when she does not drink. Case management consulted. Chronic conditions: Obesity class II: complicates care and recovery. Tobacco Abuse: Encouraged cessation, inpatient consultation per RT, NR if desired. Allergic rhinitis HÉCTOR: Patient does have diagnosis and unfortunately per discussion with her and her family appears not to use a CPAP, discussed and she is willing to try here and following discussions we will discuss setting up home items to which she has been resistant previously with case management. VTE prophylaxis: enoxaparin. Medications at Discharge Home Medications cetirizine 10 mg tablet 10 mg PO QHS allergies 01/24/24 dapagliflozin propanediol 10 mg tablet (Farxiga) 10 mg PO DAILY diabetes 01/24/24 fluticasone propionate 50 mcg/actuation nasal spray,suspension 2 spray intranasal DAILY allergies 01/24/24 metformin 500 mg tablet,extended release 24 hr 1,000 mg PO DAILY diabetes 01/24/24 prednisolone acetate 1 % eye drops,suspension 1 drp LEFT EYE Q3H infection 01/24/24 semaglutide 3 mg tablet (Rybelsus) 3 mg PO DAILY diabetes 01/24/24 aspirin 81 mg chewable tablet 81 mg PO BREAKFAST #0 tabs 01/25/24 atorvastatin 80 mg tablet 80 mg PO QHS #30 tabs 01/25/24 multivitamin-iron 9 mg-folic acid 400 mcg-calcium and minerals tablet (Therapeutic-M) 1 tab PO BREAKFAST #0 tabs 01/25/24 Hospital Course Procedures 2-D Echocardiogram Summary of Care Provided Minutes Spent on Discharge: 36 Hospital Course: Patient presents complaining of severe headache. Patient underwent a CT that showed bilateral thalamic infarcts. MRI of the brain confirmed that. Patient was seen by neurology who recommended aspirin and atorvastatin. A hypercoagulable panel was ordered and results are pending. It was also noted the patient had a basilar artery aneurysm 4.9 x 5.1 mm. Neurosurgery at [facility] was made aware and they feel is incidental finding can follow-up as outpatient. Patient's headache has resolved. It was noted that that the patient apparently been to [facility] neuro surgery as outpatient prior due to this aneurysm and was felt to be stable at that time. Patient nonetheless will need to follow-up with [facility] neurosurgery. Patient was given information to follow-up with [facility] neurology as well but patient advised that she can follow-up any neurologist at her convenience for further stroke follow-up. Weight / BMI Weight Weight: 84.6 kg Body Mass Index (BMI) 35.2 ABG / Lab / Microbiology Data 01/25/24 05:55 01/25/24 05:55 Laboratory: Laboratory Results - last 24 hr 01/24/24 18:31: WBC 12.8 H, RBC 4.96, Hgb 16.6 H, Hct 47.5 H, MCV 95.8, MCH 33.5 H, MCHC 34.9, RDW Std Deviation 42.7, RDW Coeff of Nery 12.2, Plt Count 388, MPV 10.2, Immature Gran % (Auto) 0.300, Neut % (Auto) 64.9, Lymph % (Auto) 20.0, Rabun % (Auto) 12.1 H, Eos % (Auto) 1.8, Baso % (Auto) 0.9, Absolute Neuts (auto) 8.3 H, Absolute Lymphs (auto) 2.55, Nucleated RBC % 0, Differential Comment SEE COMMENT, Diff Path Review Karolina snow, Platelet Estimate ADEQUATE, RBC Morphology N CHROM, Anisocytosis RARE, Macrocytosis RARE, PT 15.2 H, INR 1.2, APTT 25.6, Sodium 139, Potassium 3.3 L, Chloride 106, Carbon Dioxide 24.0, Anion Gap 9, BUN 15, Creatinine 1.01, Estim Creat Clear Calc 69.42, Est GFR (MDRD) Af Amer 76, Est GFR (MDRD) Non-Af 63, BUN/Creatinine Ratio 14.9, Glucose 185 H, Calcium 9.2, Phosphorus 2.3 L, Magnesium 2.3 01/24/24 22:33: POC Glucose 102 01/25/24 05:55: WBC 12.0 H, RBC 4.68, Hgb 15.3 H, Hct 46.3, MCV 98.9, MCH 32.7 H, MCHC 33.0 D, RDW Std Deviation 45.0 H, RDW Coeff of Nery 12.5, Plt Count 376, MPV 10.4, Immature Gran % (Auto) 0.200, Neut % (Auto) 56.7, Lymph % (Auto) 23.5, Rabun % (Auto) 15.9 H, Eos % (Auto) 2.7, Baso % (Auto) 1.0, Absolute Neuts (auto) 6.8, Absolute Lymphs (auto) 2.82, Nucleated RBC % 0, Differential Comment SCANNED, Diff Path Review May foll, Sodium 139, Potassium 3.6, Chloride 112 H, Carbon Dioxide 24.0, Anion Gap 3 L, BUN 14, Creatinine 0.92, Estim Creat Clear Calc 76.22, Est GFR (MDRD) Af Amer 85, Est GFR (MDRD) Non-Af 70, BUN/Creatinine Ratio 15.2, Glucose 236 H, Hemoglobin A1c 8.3 H, Calcium 9.0, Total Bilirubin 0.30, AST 69 H, ALT 171 H, Alkaline Phosphatase 84, Total Protein 7.0, Albumin 3.2, Globulin 3.8, Albumin/Globulin Ratio 0.8 L, Triglycerides 122, Cholesterol 168, LDL Cholesterol 110, VLDL Cholesterol 24, HDL Cholesterol 34 L, TSH 1.23, Free T4 0.88 01/25/24 05:57: POC Glucose 224 H 01/25/24 11:35: POC Glucose 185 H Radiography Diagnostic Testing: Radiology Impression Brain CT 01/24/24 17:14 IMPRESSION: Bilateral thalamic infarcts possibly subacute and apparent basilar tip aneurysm MRI and MRA recommended for further evaluation N.B. : The above Results were Read Back by Sami Zhong MD to Everett Forde MD, and understanding confirmed on 01/24/2024 18:18:39 (ET). Electronically Signed: Sami Zhong MD at 18:14 EDT Reading Location ID and State: [facility] / [place] Tel [phone], Service support , ADDENDUM: 01/24/24 1823 IMPRESSION: Bilateral thalamic infarcts possibly subacute and apparent basilar tip aneurysm MRI and MRA recommended for further evaluation N.B. : The above Results were Read Back by Sami Zhong MD to IRENE Ruth, and understanding confirmed on 01/24/2024 18:18:15 (ET). Electronically Signed: Sami Zhong MD at 18:14 EDT , Head/Neck CTA 01/24/24 18:18 IMPRESSION: Normal CTA of the neck. 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 Electronically Signed: Sami Zhong MD at 19:31 EDT , Echocardiogram 01/24/24 22:10 Interpretation Summary Normal LV size. Left ventricular systolic function is normal. The left ventricular ejection fraction is 55 %. Bubble contrast study negative for right to left interatrial shunt. Ordering Physician: Estela Niar Referring Physician: Akash Omalley MD Performed By: Joyce Kraft BINTA Brain MRI 01/25/24 09:00 IMPRESSION: Small acute bilateral thalamic infarcts, corresponding to the CT findings. 6 mm basilar tip aneurysm. Electronically Signed: Charo Fabian MD at 10:30 EDT , D/C Instructions Discharge Diet: Low fat / Low cholesterol Meaningful Use Info Meaningful Use Meaningful Use Diagnoses (Choose all that apply): Ischemic CVA CVA Therapy Assessed for PT,OT and/or ST?: Yes Ischemic Stroke Antithrombotic order at d/c?: Yes Dx of Atrial fib/flutter?: No Anticoagulant at discharge?: No Reason anticoagulant not ordered: Treatment not Indicated Statin Dosing Therapy Reference: STATIN DOSE THERAPY REFERENCE: * Patients > 75 years receive moderate or high dose statin therapy. * Patients 75 years or YOUNGER should receive HIGH intensity statin dose unless contraindicated. You will be required to document reason for non-treatment if statin daily dose does not meet guidelines. HIGH DOSE STATIN THERAPY DAILY Atorvastatin > than or = to 40 mg Rosuvastatin > than or = to 20 mg Amlodipine + Atorvastatin > than or = to 2.5/40 mg Ezetimibe + Simvastatin 10/80 mg Simvastatin 80mg Statins at discharge?: Yes If patient is 75 or younger, pt will be discharged on HIGH intensity statin.: Yes Primary Dx Acute Ischemic CVA?: Yes IV thrombolytic ordered during stay?: No Reason IV thrombolytic not ordered: Treatment not Indicated Discharge Plan Admission Admit Date/Time: 01/24/24 21:12 Primary Reason for Your Visit: Stroke Attending Provider: Lex Nieto Primary Care Provider: Akash Omalley Consulting Providers: Nilesh Bansal; Jennifer Worthy; Shante Shetty; Shaunna Mejia; Bridgette Chen; Josafat Corado; Yamilet Clemente; Michel Dey; Deep Bryant; Jose Joseph; Shoshana Grimes; Andi Gonzales; Mildred Freeman; Timmy Martinez; Jed Alexis; Calderon Goldstein; Josep Espino; Uriah Briceño; Ivette Serrano; Lela Giles; Estela Nair Instructions Additional Instructions / Restrictions: You had an acute stroke. You will be on aspirin and cholesterol medication to help prevent another stroke. They did send out blood test to see if you have a clotting problem. Results of those will be available for another week or 2. You can follow your primary care physician in regards to those results. 3 importantly do follow-up with neurology just for routine monitoring. Additionally with the aneurysm that was found, is recommend that you follow-up with [facility]. [facility]: [phone] [facility] (for neurosurgery): [phone]. Discharge Orders/Prescriptions Prescriptions: New atorvastatin 80 mg Tablet 80 mg PO QHS Qty: 30 0RF aspirin 81 mg Tablet,Chewable 81 mg PO BREAKFAST Qty: 0 0RF Therapeutic-M 9 mg iron-400 mcg Tablet 1 tab PO BREAKFAST Qty: 0 0RF Continued dapagliflozin propanediol [Farxiga] 10 mg tablet 10 mg PO DAILY fluticasone propionate 50 mcg/actuation spray,suspension 2 spray INTRANASAL DAILY prednisolone acetate 1 % drops,suspension 1 drp LEFT EYE Q3H Rybelsus 3 mg tablet 3 mg PO DAILY cetirizine 10 mg tablet 10 mg PO QHS Held metformin 500 mg tablet extended release 24 hr 1,000 mg PO DAILY Hold Instructions: Resume on 01/29/24. Referrals / Follow Up: Akash Omalley MD [Primary Care Provider] - Within 2 Weeks Disposition Disposition (needs filled in before D/C Order can be placed): Home, Self Care Charges/Coding Visit Charges Inpatient E&M: 57768 Disch Hosp >30min
--- NOTE | 2024-01-25 14:00 | CPS ---
not started, patient leaving
[2024-01-27 15:26] LABS: Pathologist Review Reviewed
[2024-01-27 15:27] LABS: Pathologist Review Reviewed
== END 2024-01-25 14:40 | disposition home or self-care (01) | DRG 66 ==
LOC: ED 21:05 → PCU 01-25 00:32
PROVIDERS: Admitting Provider Family Medicine; Emergency Provider Emergency Medicine; PCP Family Medicine
DX: I63.50 Cerebral infarction due to unspecified occlusion or stenosis of unspecified cerebral artery (principal); I72.5 Aneurysm of other precerebral arteries; E11.65 Type 2 diabetes mellitus with hyperglycemia; E04.1 Nontoxic single thyroid nodule; F10.10 Alcohol abuse, uncomplicated; G43.709 Chronic migraine without aura, not intractable, without status migrainosus; G47.33 Obstructive sleep apnea (adult) (pediatric); E87.6 Hypokalemia; J30.9 Allergic rhinitis, unspecified; F17.210 Nicotine dependence, cigarettes, uncomplicated; E66.9 Obesity, unspecified; Z68.35 Body mass index [BMI] 35.0-35.9, adult; R03.0 Elevated blood-pressure reading, without diagnosis of hypertension; Z79.84 Long term (current) use of oral hypoglycemic drugs
CPT/HCPCS: 36415; 70450; 70496; 70498; 70551; 80048; 80053; 80061; 81240; 81241; 82962; 83036; 83735; 84100; 84439; 84443; 85025; 85300; 85301; 85302; 85303; 85610; 85730; 86146; 86147; 93005; 93306; 94762; 97161; 97165; 97802; 99284; J7030; J7050; Q9957; Q9967; A4216

== ENCOUNTER 2024-01-31 07:26 | Emergency (ER) | payer SELFPAY ==
[2024-01-31] VITALS (12 sets, daily range): BP systolic 124–180; BP diastolic 77–120; PULSE 80–109; RESP 16–25; TEMP 35.8–37.2; O2SAT 90–99; BMI 35.9
--- NOTE | 2024-01-31 07:34 | EKG12_ITS ---
Test Reason : HEADACHE Blood Pressure : / mmHG Vent. Rate : 101 BPM Atrial Rate : 101 BPM P-R Int : 146 ms QRS Dur : 086 ms QT Int : 364 ms P-R-T Axes : 047 080 002 degrees QTc Int : 471 ms Sinus tachycardia Nonspecific T wave abnormality Abnormal ECG Confirmed by Rey Alvarado ([id number]), publication editor ANTONIO WILHELM ([id number]) on 02/03/2024 10:35:10 AM Referred By: Confirmed By:Rey Alvarado
--- NOTE | 2024-01-31 07:35 | CT_ITS ---
INDICATION: headache EXAMINATION: CT BRAIN - CT Head or Brain W/O Contrast Injection TECHNIQUE: Multiple axial images were obtained of the head without intravenous contrast. The protocol utilizes one or more of the following dose reduction techniques: automated exposure control, adjustment of mA and/or kV according to patient size,and/or use of iterative reconstruction technique. IV Contrast dosage and agent: None. RADIATION DOSAGE (If Supplied By Facility): CTDIvol = ( 44.99 ) mGy, DLP = ( 812.98 ) mGycm COMPARISON: Prior study dated: 01/24/2024 FINDINGS: BRAIN PARENCHYMA: Diffuse intraventricular hemorrhage involving the lateral, third and fourth ventricles. Mild subarachnoid hemorrhage around the edge of the tentorium. Subacute to chronic bilateral thalamic lacunar infarcts are again seen. No intracranial mass or mass effect. There is otherwise preservation of the ledesma/white matter interface. CSF SPACES: The ventricles are slightly larger in size in the previous examination. Early hydrocephalus cannot be excluded. Blood is seen in the basilar cistern. CALVARIUM, SKULL BASE, PARANASAL SINUSES AND MASTOID AIR CELLS: Clear. No discrete lytic or blastic abnormalities. ORBITS: Both globes, extraocular muscles, optic nerves and retrobulbar fat appear unremarkable. CT/Brain/Head without Contrast IMPRESSION: 1. Extensive intraventricular hemorrhage and in the basilar cistern new since previous examination. 2. The ventricles are slightly larger than the previous exam which could reflect developing hydrocephalus. 3. Persistent subacute or chronic bilateral thalamic infarcts. N.B. : The above Results were Read Back by Gonzalo Trinidad MD to Len Zaldivar MD, and understanding confirmed on 01/31/2024 08:37:33 (ET). Electronically Signed: Gonzalo Trinidad MD at 8:38 EDT ,
[2024-01-31] MEDS: Ondansetron 4 MG/2 ML Vial IV (07:36)
--- NOTE | 2024-01-31 07:36 | ED.VIS.STROK ---
HPI History of Present Illness Chief Complaint: Headache Informant: patient, spouse/S.O. and EMS Narrative Narrative: 43-year-old female who woke her up when she was moaning and saying something was wrong this morning about an hour prior to arrival, complaining of severe headache, he states that she clenched her legs up and was a little tremulous temporarily but without complete loss of consciousness, she was staring off into space. The patient states she remembers all of this. She was recently admitted to the hospital after having a stroke and was diagnosed with an aneurysm. The states they have not been to a specialist for the aneurysm yet and she was just discharged from the hospital about 5 days ago. Her main deficits have been short-term memory loss and no weakness/numbness, the patient describes having none of that right now, just a terrible frontal headache and neck pain that is also severe. She is nauseated but has not vomited. She denies any changes in her vision right now or pain elsewhere or numbness/tingling. states she started complaining of a headache yesterday morning, and yesterday evening it was more severe but she was otherwise normal. [facility] Medical History Alcohol abuse HÉCTOR (obstructive sleep apnea) Tobacco use Diabetes mellitus, type 2 Chronic migraine Allergic rhinitis Obesity Home Medications ?Medication ?Instructions ?Recorded ?Last Taken ?Type cetirizine 10 mg tablet 10 mg PO QHS allergies 01/24/24 Unknown History dapagliflozin propanediol 10 mg 10 mg PO DAILY diabetes 01/24/24 Unknown History tablet (Farxiga) fluticasone propionate 50 2 spray intranasal DAILY allergies 01/24/24 Unknown History mcg/actuation nasal spray,suspension metformin 500 mg tablet,extended 1,000 mg PO DAILY diabetes 01/24/24 Unknown History release 24 hr prednisolone acetate 1 % eye 1 drp LEFT EYE Q3H infection 01/24/24 Unknown History drops,suspension semaglutide 3 mg tablet (Rybelsus) 3 mg PO DAILY diabetes 01/24/24 Unknown History aspirin 81 mg chewable tablet 81 mg PO BREAKFAST #0 tabs 01/25/24 Unknown Rx atorvastatin 80 mg tablet 80 mg PO QHS #30 tabs 01/25/24 Unknown Rx multivitamin-iron 9 mg-folic acid 1 tab PO BREAKFAST #0 tabs 01/25/24 Unknown Rx 400 mcg-calcium and minerals tablet (Therapeutic-M) Allergy/AdvReac Type Severity Reaction Status Date / Time No Known Allergies Allergy Verified 01/31/24 08:46 Family History Mother Hypertension Diabetes Liver failure Reported as non-alcoholic in nature. Father Diabetes Surgical History S/P appendectomy Social History household members: spouse, family and children Smoking Status: Current every day smoker tobacco type: cigarettes alcohol intake: current alcohol intake frequency: 3 or more drinks per day details: 4 or > shots of whiskey daily. substance use type: does not use ROS ROS ED Constitutional Constitutional ED: Denies chills or fever(s) Eyes Eyes: Denies blurry vision or diplopia ENT ENT ED: Denies ear pain or sore throat Cardiovascular Cardiovascular: Denies chest pain or palpitations Respiratory/Chest Respiratory/Chest: Denies cough or dyspnea Gastrointestinal Gastrointestinal: Reports nausea; Denies abdominal pain, diarrhea or vomiting Genitourinary Genitourinary ED: Denies dysuria or urinary frequency Musculoskeletal Musculoskeletal: Reports neck pain; Denies back pain or myalgias Integumentary Denies abscess or rash Neurologic Neurologic: Reports as per HPI, headache(s) and seizure-like activity; Denies paresthesias or weakness EXAM Physical Exam Const Vital Signs: 01/31/24 07:26 01/31/24 07:34 01/31/24 07:42 Temperature 96.4 F L 98.9 F Temperature Source Temporal Temporal Pulse Rate 106 H 108 H Respiratory Rate 24 H 23 H Blood Pressure 174/101 H 174/101 H Blood Pressure Mean 125 125 Pulse Ox 90 95 Oxygen Delivery Method Nasal Cannula Nasal Cannula Nasal Cannula Oxygen Flow Rate (L/min) 2 2 2 01/31/24 07:44 01/31/24 07:46 01/31/24 07:57 Temperature 97.8 F 97.8 F Temperature Source Temporal Temporal Pulse Rate 109 H 97 Respiratory Rate 20 H 25 H Blood Pressure 180/107 H 161/120 H Blood Pressure Mean 131 133 Pulse Ox 95 97 Oxygen Delivery Method Nasal Cannula Nasal Cannula Nasal Cannula Oxygen Flow Rate (L/min) 2 2 4 01/31/24 08:01 01/31/24 08:12 01/31/24 08:15 Temperature 98.5 F 97.6 F L 97.4 F L Temperature Source Temporal Temporal Temporal Pulse Rate 101 H 80 100 Respiratory Rate 20 H 18 23 H Blood Pressure 161/120 H 138/91 H 138/98 H Blood Pressure Mean 133 106 111 Pulse Ox 95 93 94 Oxygen Delivery Method Nasal Cannula Nasal Cannula Oxygen Flow Rate (L/min) 4 4 4 01/31/24 08:22 01/31/24 08:26 01/31/24 08:30 Temperature 97.8 F 97.6 F L Temperature Source Temporal Temporal Pulse Rate 100 101 H Respiratory Rate 23 H 22 H Blood Pressure 138/98 H 134/85 H Blood Pressure Mean 111 101 Pulse Ox 94 96 94 Oxygen Delivery Method Nasal Cannula Nasal Cannula Nasal Cannula Oxygen Flow Rate (L/min) 4 4 4 01/31/24 08:45 Temperature 98.9 F Temperature Source Temporal Pulse Rate 87 Respiratory Rate 23 H Blood Pressure 132/82 H Blood Pressure Mean 98 Pulse Ox 94 Oxygen Delivery Method Nasal Cannula Oxygen Flow Rate (L/min) 4 Positive well nourished and well developed Constitutional Narrative: Awake, able to follow commands and converse, a little somnolent, appears to not feel well General Appearance ED: well developed HEENT Reports normocephalic and moist mucous membranes atraumatic Eyes PERRL, EOMs intact bilaterally and conjunctivae normal Neck no lymphadenopathy, supple and no meningeal signs Chest Wall inspection of chest normal and palpation of chest normal Resp normal respiratory effort and clear to auscultation bilaterally Cardio no murmurs Rate: regular rate Rhythm: regular rhythm GI soft to palpation, non-tender and non-distended Palpation: soft Extremity normal to inspection and full ROM Neuro oriented x3 and CN's II-XII intact bilaterally Neuro Narrative: A little somnolent but eyes open and able to converse in short sentences, stating that her headache is severe Irons Coma Scale: document GCS findings Spontaneous Obeys Commands Oriented 15 Sensorium / Orientation: awake and alert Speech: speech normal Motor Exam: strength 5/5 throughout Psych mental status grossly normal Skin Lesions: no lesions Rashes: no rashes NIHSS NIHSS Initial: 1a Level of Consciousness: 1 1b LOC Questions (Score 2 if aphasic/stupor): 0 1c LOC Commands (Only score 1st attempt): 0 2 Best Gaze (If aphasic, use reflexive mvmts.): 0 3 Visual: 0 4 Facial Palsy: 0 5 Motor Arm Right (UN = amputation/fusion): 0 5 Motor Arm Left: 0 6 Motor Leg Right: 0 6 Motor Leg Left: 0 7 Limb ataxia (Only + if out of proportion): 0 8 Sensory (Aphasia/stupor=0 or 1, coma=2): 0 9 Best Language: 0 10 Dysarthria (mute, coma=2, intubated=UN): 0 11 Extinction and Inattention (only scored if +): 0 Total Score: 1 MDM MDM MDM Narrative Medical decision making narrative: Patient's blood pressure very high. Being concerned about a bleed, I discussed with CT and ordered workup emergently. I viewed the images in real-time discussed with CT, consistent with intracerebral intraventricular hemorrhage. Orders altered appropriately. Discussed with transfer center at [facility] bleed line (attempted to contact neurosurgery but they were unavailable), arranging transport via [employer], hemorrhagic order set entered in order to control the patient's blood pressure, and patient is accepted by Dr. Arita, ED physician. Her blood pressure is 142/91 after a single dose of labetalol which is much better, giving the patient some morphine as well as the Zofran that was given, for her symptoms. Her GCS is 15 right now so I do not think she needs to be intubated she is protecting her airway which we are monitoring closely. According to [facility] pilots, [facility] and are unable to fly and land here at the hospital, but they can fly to [place] if we can get her to the airport. Given the emergent nature of the situation, it would take an extended amount of time to get a MICU crew here by ground, so I am having her go by ALS and if they require us to disconnect the Cardene drip temporarily, then we will do that and provide them with orders and medications to give as needed for blood pressure and parameters will be given. Patient discharged this week on aspirin; no anticoagulants to reverse. Upon handoff to flight crew, pt GCS 14, somnolent, easily arousable, without bradycardia; is protecting airway. They agree OK to transport without RSI at this time. 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 Labs: Laboratory Results - last 24 hr 01/31/24 07:30 WBC 19.7 H RBC 5.02 Hgb 16.5 H Hct 48.3 H MCV 96.2 MCH 32.9 H MCHC 34.2 RDW Std Deviation 44.3 H RDW Coeff of Nery 12.4 Plt Count 402 MPV 10.8 Immature Gran % (Auto) 0.400 Neut % (Auto) 68.2 Lymph % (Auto) 19.6 [place] % (Auto) 10.2 H Eos % (Auto) 0.8 Baso % (Auto) 0.8 Absolute Neuts (auto) 13.4 H Absolute Lymphs (auto) 3.87 Nucleated RBC % 0 Differential Comment COMMENT Diff Path Review May foll PT 15.9 H INR 1.3 APTT 24.1 Sodium 142 Potassium 3.1 L Chloride 112 H Carbon Dioxide 22.0 Anion Gap 8 BUN 9 Creatinine 0.93 Estim Creat Clear Calc 76.17 Est GFR (MDRD) Af Amer 84 Est GFR (MDRD) Non-Af 69 BUN/Creatinine Ratio 9.7 L Glucose 212 H Calcium 9.6 Troponin I High Sens 8 Radiography Chest X-Ray - ED: 1 View, Read by ED Physician and No Acute Disease (Narrow mediastinum. No CHF.) Diagnostic Testing: Clinical Impression(s) from Imaging Studies Brain CT 01/31/24 07:35 IMPRESSION: 1. Extensive intraventricular hemorrhage and in the basilar cistern new since previous examination. 2. The ventricles are slightly larger than the previous exam which could reflect developing hydrocephalus. 3. Persistent subacute or chronic bilateral thalamic infarcts. N.B. : The above Results were Read Back by Gonzalo Trinidad MD to Len Zaldivar MD, and understanding confirmed on 01/31/2024 08:37:33 (ET). Electronically Signed: Gonzalo Trinidad MD at 8:38 EDT , ADDENDUM: 01/31/24 0845 IMPRESSION: 1. Extensive intraventricular hemorrhage and in the basilar cistern new since previous examination. 2. The ventricles are slightly larger than the previous exam which could reflect developing hydrocephalus. 3. Persistent subacute or chronic bilateral thalamic infarcts. N.B. : The above Results were Read Back by Gonzalo Trinidad MD to Len Zaldivar MD, and understanding confirmed on 01/31/2024 08:37:33 (ET). Electronically Signed: Gonzalo Trinidad MD at 8:38 EDT , CT head: I reviewed the images and the report which I agree with. Rhythm Strip Rhythm Strip: Sinus Tach Rate: 105 Ectopy: None EKG Initial EKG: Attestation: I personally reviewed and interpreted this EKG as follows: Interpretation: No Acute Injury Pattern and Sinus Tachycardia Management Discussion w/another healthcare provider: Options Advisor (neurovascular [employer], [facility]), Radiologist and Other (See MDM) Stroke Documentation Questions Stroke Team Activated: No (no deficits but taken STAT to CT out of concern for hemorrhage) Was Patient considered for Endovascular Intervention?: No-CTA not indicated (just had one) IV Thrombolytic Administered: No (hemorrhage) Critical Care Time Critical Care Time: Yes Critical care time (excluding procedures): 30-74 minutes (36 min), Including time spent:, Discussing w/Patient &/or Family/Marketing Ambassador, Discussing w/Consultants, Arranging Admission or Transfer and Performing Direct Patient Care at Bedside Discharge Plan Triage Chief Complaint: Headache ED Provider: Len Zaldivar Dx/Rx/DC Orders Clinical Impression: Acute intracerebral hemorrhage, Basilar artery aneurysm, Hypertensive emergency, no CHF Prescriptions: No Action dapagliflozin propanediol [Farxiga] 10 mg tablet 10 mg PO DAILY fluticasone propionate 50 mcg/actuation spray,suspension 2 spray INTRANASAL DAILY metformin 500 mg tablet extended release 24 hr 1,000 mg PO DAILY prednisolone acetate 1 % drops,suspension 1 drp LEFT EYE Q3H Rybelsus 3 mg tablet 3 mg PO DAILY cetirizine 10 mg tablet 10 mg PO QHS atorvastatin 80 mg Tablet 80 mg PO QHS Qty: 30 0RF aspirin 81 mg Tablet,Chewable 81 mg PO BREAKFAST Qty: 0 0RF Therapeutic-M 9 mg iron-400 mcg Tablet 1 tab PO BREAKFAST Qty: 0 0RF Primary Care Provider: Akash Omalley Referrals: Akash Omalley MD [Primary Care Provider] - Print Language: Lithuanian Disposition Disposition: Acute Care Hospital Discharge Location: [facility]
[2024-01-31 07:44] LABS: Absolute Lymphocyte Count 3.87 X10^3/uL (0.83-4.51); Absolute Neutrophil Count 13.4 X10^3/uL (2.0-7.7); Basophil# 0.15 X10^3/uL; Basophil% 0.8 % (0-1); Eosinophil# 0.16 X10^3/uL; Eosinophils% 0.8 % (0-5); Hematocrit 48.3 % (37-47); Hemoglobin 16.5 g/dL (12.0-15.0); Lymphocyte # 3.87 X10^3/ul (0.83-4.51); Lymphocyte % 19.6 % (19-41); Mean Corp Hgb Conc 34.2 g/dL (32-36); Mean Corpuscular Hgb 32.9 pg (27.0-32.0); Mean Corpuscular Volume 96.2 fL (81-99); Mean Platelet Vol. 10.8 fl (6.2-12.0); Monocyte# 2.01 X10^3/uL; Monocyte% 10.2 % (0-10); NRBC Flagged by Analyzer 0 % (0-5); Neutrophil # 13.43 X10^3/uL (2.7-7.7); Neutrophil % 68.2 % (47-70); POSITIVE DIFFERENTIAL YES; Platelet Count 402 K/mm3 (150-450); RBC Distribution Width CV 12.4 % (11.6-14.6); RBC Distribution Width SD 44.3 fl (35.1-43.9); Red Blood Count 5.02 M/mm3 (4.2-5.4); White Blood Count 19.7 K/mm3 (4.4-11.0)
[2024-01-31 07:47] LABS: Differential Indicated SCAN CRITERIA MET
[2024-01-31] MEDS: Labetalol (Prefilled) 20 MG/4 ML IV (07:50)
--- NOTE | 2024-01-31 07:52 | NURSING ---
CALLED [facility] FOR TRANSFER TO [facility]
--- NOTE | 2024-01-31 07:55 | RAD_ITS ---
INDICATION: Neuro deficit, acute, stroke suspected EXAMINATION/TECHNIQUE: X-RAY - XR Chest 1 View COMPARISON: Prior study dated: 11/29/2020 FINDINGS: LINES/DEVICES: None. LUNGS: No consolidation, edema or effusion. No pneumothorax. MEDIASTINUM AND CARDIOVASCULAR STRUCTURES: Cardiac silhouette not enlarged. Central airways and mediastinal contour are unremarkable. BONES AND SOFT TISSUES: Unremarkable. RAD/Chest 1 View IMPRESSION: No radiographic evidence of acute cardiopulmonary disease. Electronically Signed: Gonzalo Trinidad MD at 9:17 EDT ,
[2024-01-31 08:01] LABS: Anion Gap 8 (5-15); BUN 9 mg/dL (7-18); BUN/Creat Ratio 9.7 RATIO (10-20); Calcium,Total 9.6 mg/dL (8.5-10.1); Chloride 112 mmol/L (98-107); Creatinine, Serum 0.93 mg/dL (0.55-1.02); EST Glomerular Filtration Rate 69 mL/min (>60); Est Glom Filt Rate - Afr Amer 84 mL/min (>60); Estimated Creatinine Clearance 76.17 ml/min; Glucose 212 mg/dL (74-106); Potassium 3.1 mmol/L (3.5-5.1); Sodium Level 142 mmol/L (136-145); Troponin-I HS 8 pg/mL (3.0-54.0)
[2024-01-31] MEDS: Nicardipine HCl-0.9% Sod Chlor 20 MG/200 ML IV.SOLN 50 MG CONT INF (08:01)
[2024-01-31] MEDS: Morphine 4 MG/ML Syringe IV (08:08)
[2024-01-31 08:53] LABS: International Normalized Ratio 1.3; Prothrombin Time (Protime)PT. 15.9 SECONDS (11.7-14.9)
[2024-01-31 08:54] LABS: Partial Thromboplast Time 24.1 Seconds (24.1-36.2)
[2024-02-03 14:16] LABS: Pathologist Review Reviewed
== END 2024-01-31 09:04 | disposition short-term general hospital (02) ==
PROVIDERS: Emergency Provider Emergency Medicine; PCP Family Medicine; Visit Provider Emergency Medicine
DX: I61.5 Nontraumatic intracerebral hemorrhage, intraventricular (principal); E11.9 Type 2 diabetes mellitus without complications; I72.5 Aneurysm of other precerebral arteries; R29.701 NIHSS score 1; G43.709 Chronic migraine without aura, not intractable, without status migrainosus; I16.1 Hypertensive emergency; M54.2 Cervicalgia; G47.33 Obstructive sleep apnea (adult) (pediatric); E66.9 Obesity, unspecified; Z79.82 Long term (current) use of aspirin; Z79.84 Long term (current) use of oral hypoglycemic drugs; Z79.899 Other long term (current) drug therapy; F17.210 Nicotine dependence, cigarettes, uncomplicated
CPT/HCPCS: 70450; 71045; 80048; 84484; 85025; 85610; 85730; 93005; 96374; 96375; 99285; J7030; A4216; J2405

== ENCOUNTER → 2025-01-06 | Outpatient (CLI) | payer BC, SELFPAY ==
[2025-01-06 10:15] LABS: Hemoglobin 14.9 g/dL (12.0-15.0); Mean Corp Hgb Conc 33.9 g/dL (32-36); Mean Corpuscular Hgb 33.4 pg (27.0-32.0); Mean Corpuscular Volume 98.7 fL (81-99); Mean Platelet Vol. 10.5 fl (6.2-12.0); Platelet Count 415 K/mm3 (150-450); RBC Distribution Width CV 13.2 % (11.6-14.6); RBC Distribution Width SD 49.2 fl (35.1-43.9); Red Blood Count 4.46 M/mm3 (4.2-5.4); White Blood Count 17.3 K/mm3 (4.4-11.0)
[2025-01-06 12:12] LABS: ALB/GLOB Ratio 1.3 RATIO (0.9-2.4); AST(SGOT) 16 U/L (<=31); Alanine Aminotransfer ALT/SGPT 12 U/L (<=34); Albumin, Serum 4.1 g/dL (3.5-5.0); Alkaline Phosphatase 70 U/L (35-104); Anion Gap 10 (5-15); BUN 13 mg/dL (4-19); Calcium,Total 9.6 mg/dL (7.6-11.0); Chloride 107 mmol/L (98-108); Creatinine, Serum 0.81 mg/dL (0.70-1.20); EST Glomerular Filtration Rate 91 (>60); Ferritin 104 ng/mL (22-378); Globulin 3.1 g/dL (2.2-4.2); Glucose 89 mg/dL (70-99); Protein, Total 7.1 g/dL (5.9-8.4); Sodium Level 139 mmol/L (133-145); Total Bilirubin 0.36 mg/dL (0.00-1.30)
[2025-01-07 04:07] LABS: GGTP 13 IU/L (0-60)
== END | disposition home or self-care (01) ==
LOC: MFPLAB 09:07
PROVIDERS: PCP Family Medicine; Referring Provider Family Medicine; Visit Provider Family Medicine
DX: E04.1 Nontoxic single thyroid nodule (principal); K74.60 Unspecified cirrhosis of liver
CPT/HCPCS: 36415; 80053; 82306; 82728; 82977; 84439; 84443; 85027

== ENCOUNTER → 2025-01-21 | Outpatient (CLI) | payer BC, SELFPAY ==
[2025-01-21 17:46] LABS: Absolute Lymphocyte Count 3.17 X10^3/uL (0.83-4.51); Absolute Neutrophil Count 5.4 X10^3/uL (2.0-7.7); Basophil# 0.13 X10^3/uL; Basophil% 1.2 % (0-1); Hematocrit 42.3 % (37-47); Hemoglobin 14.3 g/dL (12.0-15.0); Lymphocyte # 3.17 X10^3/ul (0.83-4.51); Lymphocyte % 28.9 % (19-41); Mean Corp Hgb Conc 33.8 g/dL (32-36); Mean Corpuscular Hgb 33.1 pg (27.0-32.0); Mean Corpuscular Volume 97.9 fL (81-99); Mean Platelet Vol. 11.1 fl (6.2-12.0); Monocyte# 1.15 X10^3/uL; Monocyte% 10.5 % (0-10); NRBC Flagged by Analyzer 0 % (0-5); Neutrophil % 49.1 % (47-70); Platelet Count 400 K/mm3 (150-450); RBC Distribution Width CV 12.9 % (11.6-14.6); RBC Distribution Width SD 46.8 fl (35.1-43.9); Red Blood Count 4.32 M/mm3 (4.2-5.4)
== END | disposition home or self-care (01) ==
LOC: MFPLAB 15:31
PROVIDERS: PCP Family Medicine; Referring Provider Family Medicine; Visit Provider Family Medicine
DX: D72.829 Elevated white blood cell count, unspecified (principal)
CPT/HCPCS: 36415; 85025